=== PATIENT | female | born 1980 | race Caucasian/White ===

== ENCOUNTER 2020-12-27 21:48 | Emergency (ER) | payer MEDICAID ==
[~2020-12-27] VITALS: Ht 157.5 cm; Wt 95.5 kg
[2020-12-27] MEDS ORDERED: LORazepam 1 MG tablet PO ONE (22:15)
[2020-12-27] MEDS ORDERED: cloNIDine 0.1 mg tablet PO ONE (22:15)
[2020-12-27] MEDS ORDERED: OLANZapine 5mg rapidly disint. tablet PO ONE (22:15)
[2020-12-27 22:55] LABS: BASOPHILS # (AUTO) 0.1 X10'3 (0-0.2); BASOPHILS % (AUTO) 0.6 % (0-1); EOSINOPHILS # (AUTO) 0.1 X10'3 (0-0.9); EOSINOPHILS % (AUTO) 0.9 % (0-6); HEMATOCRIT 30.3 % (35.0-45.0); HEMOGLOBIN 9.2 g/dl (12.0-16.0); LYMPHOCYTES # (AUTO) 2.1 X10'3 (1.1-4.8); LYMPHOCYTES % (AUTO) 18.7 % (21-51); MEAN CORPUSCULAR HEMOGLOBIN 19.9 PG (27.0-31.0); MEAN CORPUSCULAR HGB CONC 30.5 g/dL (33.0-36.5); MEAN CORPUSCULAR VOLUME 65.3 FL (78-98); MEAN PLATELET VOLUME 8.7 FL (7.4-10.4); MONOCYTES # (AUTO) 0.8 X10'3 (0-0.9); MONOCYTES % (AUTO) 7.5 % (2-12); NEUTROPHILS % (AUTO) 72.3 % (42-75); PLATELET COUNT 439 X10'3 (140-440); RED BLOOD COUNT 4.63 X10'6 (4.20-5.60); RED CELL DISTRIBUTION WIDTH 17.8 % (11.5-14.5); WHITE BLOOD COUNT 11.2 X10'3 (4.5-11.0)
--- NOTE | 2020-12-27 23:00 | NUR ---
pt tolerating po fluids . encourage her to bedside commode for urine sample . pt up out of bed to commode unable to void notified deon sanchez . will continue to encourage po in take
[2020-12-27 23:07] LABS: ALANINE AMINOTRANSFERASE 37 U/L (12-78); ALBUMIN 3.6 G/DL (3.4-5.0); ALBUMIN/GLOBULIN RATIO 0.9 (1.1-1.5); ALKALINE PHOSPHATASE 87 IU/L (46-116); ANION GAP 17 (8-16); ASPARTATE AMINO TRANSFERASE 49 U/L (10-37); BILIRUBIN,TOTAL 0.5 MG/DL (0.1-1.0); BLOOD UREA NITROGEN 14 MG/DL (7-18); BUN/CREATININE RATIO 15.4 (6.6-38.0); CALCIUM 9.2 MG/DL (8.5-10.1); CHLORIDE 102 MMOL/L (99-107); CREATININE 0.91 MG/DL (0.40-0.90); GLUCOSE 121 MG/DL (70-104); SODIUM 139 MMOL/L (135-145); TOTAL CARBON DIOXIDE 20.4 MMOL/L (24-32); TOTAL PROTEIN 7.5 G/DL (6.4-8.2); eGFR 69 ML/MIN
[2020-12-27] MEDS ORDERED: POTA20TA19 PO (23:28)
[2020-12-27] MEDS ORDERED: PROP10TA10 PO (23:28)
[2020-12-28] MEDS ORDERED: OLANZapine 5mg rapidly disint. tablet PO ONE (00:10)
[2020-12-28 00:55] LABS: URINE AMPHETAMINE SCREEN POSITIVE (Neg); URINE BARBITUATE SCREEN NEGATIVE (Neg); URINE BENZODIAZEPINES SCREEN NEGATIVE (Neg); URINE CANNABINOID SCREEN POSITIVE (Neg); URINE COCAINE SCREEN NEGATIVE (Neg); URINE METHADONE SCREEN NEGATIVE (Neg); URINE OPIATE SCREEN POSITIVE (Neg); URINE PHENCYCLIDINE SCREEN NEGATIVE (Neg)
[2020-12-28 00:58] LABS: CLARITY,URINE SLIGHTLY CLOUDY (Clear); COLOR,URINE YELLOW (Yellow); GLUCOSE, URINE NEGATIVE (Neg); KETONES,URINE NEGATIVE (Neg); LEUKOCYTE ESTERASE ,URINE NEGATIVE (Neg); NITRITES, URINE NEGATIVE (Neg); OCCULT BLOOD,URINE NEGATIVE (Neg); PROTEIN,URINE NEGATIVE (Neg); UROBILINOGEN,URINE 0.2 E.U/dL (0.2-1.0)
[2020-12-28 01:05] LABS: UA COLLECTION TYPE STRAIGHT CATH
[2020-12-28 01:06] LABS: BACTERIA,URINE NONE SEEN /HPF (Neg); MUCUS STRANDS MANY /LPF (Neg); RBC,URINE NONE SEEN /HPF (0-2); SQUAMOUS EPITHELIAL CELL,UR FEW /LPF (FEW); WBC,URINE 0-4 /HPF (0-4)
[2020-12-28 01:10] VITALS: BP 179/86
[2020-12-28 03:23] LABS: ANISOCYTOSIS 1+; MICROCYTOSIS 2+; PLATELET ESTIMATE NORMAL
[2020-12-28 03:24] LABS: ELLIPTOCYTES 1+; HYPOCHROMASIA 2+; SPHEROCYTES FEW
== END 2020-12-28 01:15 | disposition home or self-care (01) ==
LOC: ER 21:49
DX: R07.9 Chest pain, unspecified (principal); E87.6 Hypokalemia; E05.91 Thyrotoxicosis, unspecified with thyrotoxic crisis or storm; G43.909 Migraine, unspecified, not intractable, without status migrainosus; J45.909 Unspecified asthma, uncomplicated; F41.9 Anxiety disorder, unspecified; F17.210 Nicotine dependence, cigarettes, uncomplicated; F15.90 Other stimulant use, unspecified, uncomplicated; Z86.69 Personal history of other diseases of the nervous system and sense organs; Z86.19 Personal history of other infectious and parasitic diseases; Z72.89 Other problems related to lifestyle; Z56.0 Unemployment, unspecified; Z59.0 Homelessness; Z88.8 Allergy status to other drugs, medicaments and biological substances; Z88.0 Allergy status to penicillin
CPT/HCPCS: 36415; 80053; 80305; 81001; 84443; 85008; 85025; 99284

== ENCOUNTER 2022-01-07 22:37 | Emergency (ER) | payer MEDICAID ==
[~2022-01-07] VITALS: Ht 160 cm; Wt 79.5 kg
[2022-01-08] MEDS ORDERED: normal saline 1000ml 1,000 ML IV ONE (00:05)
[2022-01-08] MEDS ORDERED: iohexol 350MG/ML 100ml bottle IV ONE (00:15)
[2022-01-08 00:20] LABS: URINE HCG NEGATIVE (NEG)
[2022-01-08 00:23] LABS: CLARITY,URINE CLEAR (Clear); COLOR,URINE YELLOW (Yellow); GLUCOSE, URINE NEGATIVE (Neg); KETONES,URINE NEGATIVE (Neg); LEUKOCYTE ESTERASE ,URINE NEGATIVE (Neg); NITRITES, URINE NEGATIVE (Neg); OCCULT BLOOD,URINE NEGATIVE (Neg); PROTEIN,URINE NEGATIVE (Neg); UROBILINOGEN,URINE 0.2 E.U/dL (0.2-1.0)
[2022-01-08 00:30] LABS: UA COLLECTION TYPE CLN CATCH MIDSTREAM
--- NOTE | 2022-01-08 00:50 | NUR ---
Multiple attempts made to recieve lab draw from system technologist, iv access from primary nurse, weigher and charger, and float RN, with no success. Will consult [facility] for IV access due to unsuccessful attempts.
[2022-01-08] MEDS ORDERED: vancomycin/NS 1 GM ADD-VANTAGE 250 ML X 1 DOSE IV ONE (01:11)
[2022-01-08] MEDS ORDERED: ondansetron/PF 4mg/2ml inj IV ONE ×2 (02:25→05:15)
[2022-01-08] MEDS ORDERED: fentaNYL/PF 50MCG/1 ML 2ML syringe IV ONE (02:25)
[2022-01-08 02:39] LABS: BASOPHILS # (AUTO) 0.1 X10'3 (0-0.2); BASOPHILS % (AUTO) 0.5 % (0-1); EOSINOPHILS # (AUTO) 0.2 X10'3 (0-0.9); EOSINOPHILS % (AUTO) 1.7 % (0-6); HEMATOCRIT 25.1 % (35.0-45.0); HEMOGLOBIN 7.8 g/dl (12.0-16.0); LYMPHOCYTES # (AUTO) 1.6 X10'3 (1.1-4.8); LYMPHOCYTES % (AUTO) 14.9 % (21-51); MEAN CORPUSCULAR HEMOGLOBIN 19.4 PG (27.0-31.0); MEAN CORPUSCULAR HGB CONC 31.1 g/dL (33.0-36.5); MEAN CORPUSCULAR VOLUME 62.6 FL (78-98); MEAN PLATELET VOLUME 8.5 FL (7.4-10.4); MONOCYTES # (AUTO) 0.8 X10'3 (0-0.9); MONOCYTES % (AUTO) 6.9 % (2-12); NEUTROPHILS # (AUTO) 8.4 X10'3 (1.8-7.7); PLATELET COUNT 547 X10'3 (140-440); RED BLOOD COUNT 4.02 X10'6 (4.20-5.60); RED CELL DISTRIBUTION WIDTH 18.6 % (11.5-14.5); WHITE BLOOD COUNT 11.1 X10'3 (4.5-11.0)
[2022-01-08 03:01] LABS: ALANINE AMINOTRANSFERASE 12 U/L (12-78); ALBUMIN 2.4 G/DL (3.4-5.0); ALBUMIN/GLOBULIN RATIO 0.5 (1.1-1.5); ALKALINE PHOSPHATASE 78 IU/L (46-116); ANION GAP 8 (8-16); ASPARTATE AMINO TRANSFERASE 11 U/L (10-37); BILIRUBIN,TOTAL 0.1 MG/DL (0.1-1.0); BLOOD UREA NITROGEN 9 MG/DL (7-18); BUN/CREATININE RATIO 13.4 (6.6-38.0); CALCIUM 8.3 MG/DL (8.5-10.1); CHLORIDE 102 MMOL/L (99-107); CREATININE 0.67 MG/DL (0.40-0.90); GLUCOSE 92 MG/DL (70-104); POTASSIUM 4.1 MMOL/L (3.5-5.1); SODIUM 138 MMOL/L (135-145); TOTAL CARBON DIOXIDE 28.2 MMOL/L (24-32); TOTAL PROTEIN 6.9 G/DL (6.4-8.2); eGFR > 90 ML/MIN
[2022-01-08] MEDS ORDERED: ketamine 50 mg/ml 10ml vial IV ONE ×2 (03:40→05:15)
[2022-01-08] MEDS ORDERED: ketorolac trometh. 30mg/ml inj. IV ONE (03:40)
[2022-01-08] MEDS ORDERED: sulfamethoxazole/trimethoprim DS (800/160mg) tablet PO ONE (05:15)
[2022-01-08] MEDS ORDERED: SULF1TAB49 PO (05:16)
[2022-01-08 05:28] LABS: ANISOCYTOSIS 2+; HYPOCHROMASIA 2+; MICROCYTOSIS 2+; PLATELET ESTIMATE INCREASED; POLYCHROMASIA FEW; STOMATOCYTES FEW
[2022-01-08 05:29] LABS: ELLIPTOCYTES 1+
--- NOTE | 2022-01-08 06:20 | NUR ---
patient awake in the room at this time.
[2022-01-08 07:24] VITALS: BP 119/73
[2022-01-08] MEDS ORDERED: VANCOmycin 1250MG/NS 250ml Bag 250 ML IV SCH (14:00)
--- NOTE | 2022-01-11 05:26 | NUR ---
VOICEMAIL MESSAGE LEFT FOR THE PT TO RETURN TO THE ER FOR TREATMENT FOR POSITIVE BLOOD CULTURE
== END 2022-01-08 07:27 | disposition home or self-care (01) ==
LOC: ER 22:38
DX: L02.414 Cutaneous abscess of left upper limb (principal); L02.31 Cutaneous abscess of buttock; J45.909 Unspecified asthma, uncomplicated; G43.909 Migraine, unspecified, not intractable, without status migrainosus; F15.10 Other stimulant abuse, uncomplicated; Z59.00 Homelessness unspecified; Z56.0 Unemployment, unspecified; Z88.5 Allergy status to narcotic agent; Z88.1 Allergy status to other antibiotic agents; Z88.0 Allergy status to penicillin; Z79.899 Other long term (current) drug therapy
CPT/HCPCS: 10061; 36415; 36556; 71275; 73201; 80053; 81003; 81025; 83605; 84145; 85008; 85025; 87040; 87077; 87186; 96365; 96366; 96375; 96376; 99152; 99153; 99285; J1885; J2405; J3010; J3370; J3490; J7030; Q9967; 32554

== ENCOUNTER 2022-01-11 08:22 | Inpatient (IN) | payer MEDICAID ==
[~2022-01-11] VITALS: Ht 160 cm; Wt 93.3 kg
[~2022-01-11 08:22] MED LIST: SULF1TAB49 PO
[2022-01-11] MEDS ORDERED: normal saline 1000ML IV soln IV ONE (09:25)
[2022-01-11] MEDS ORDERED: vancomycin/NS 1 GM ADD-VANTAGE 250 ML IV ONE (09:25)
[2022-01-11 11:07] LABS: URINE AMPHETAMINE SCREEN NEGATIVE (Neg); URINE BARBITUATE SCREEN NEGATIVE (Neg); URINE BENZODIAZEPINES SCREEN NEGATIVE (Neg); URINE CANNABINOID SCREEN POSITIVE (Neg); URINE COCAINE SCREEN NEGATIVE (Neg); URINE METHADONE SCREEN POSITIVE (Neg); URINE OPIATE SCREEN POSITIVE (Neg); URINE PHENCYCLIDINE SCREEN NEGATIVE (Neg)
[2022-01-11] MEDS ORDERED: aztreonam inj. 1,000 MG in normal saline 100ml IV soln 100 ML IV ONE (11:15)
[2022-01-11 11:17] LABS: CLARITY,URINE CLOUDY (Clear); COLOR,URINE YELLOW (Yellow); GLUCOSE, URINE NEGATIVE (Neg); KETONES,URINE NEGATIVE (Neg); LEUKOCYTE ESTERASE ,URINE NEGATIVE (Neg); NITRITES, URINE NEGATIVE (Neg); OCCULT BLOOD,URINE NEGATIVE (Neg); PH,URINE 7.5 (4.8-8.0); PROTEIN,URINE NEGATIVE (Neg); UROBILINOGEN,URINE 0.2 E.U/dL (0.2-1.0)
[2022-01-11 11:26] LABS: UA COLLECTION TYPE NON-SPECIFIED
[2022-01-11 11:28] LABS: BACTERIA,URINE FEW /HPF (Neg); RBC,URINE 0-2 /HPF (0-2); SQUAMOUS EPITHELIAL CELL,UR FEW /LPF (FEW); WBC,URINE 0-4 /HPF (0-4)
[2022-01-11 11:30] LABS: AMORPHOUS PHOSPHATES 2+
[2022-01-11] MEDS ORDERED: acetaminophen 325mg tablet PO PRN (11:50)
[2022-01-11] MEDS ORDERED: potassium Cl 20 mEq SR tablet PO PRN ×2 (11:50)
[2022-01-11] MEDS ORDERED: ondansetron/PF 4mg/2ml inj IV PRN (11:50)
[2022-01-11] MEDS ORDERED: magnesium 2GM in 50ml NS 50 ML IV PRN (11:50)
[2022-01-11] MEDS ORDERED: potassium CL 10mEq/100ml bag 100 ML IV PRN (11:50)
[2022-01-11] MEDS ORDERED: magnesium Cl slow-release 64mg tablet PO PRN (11:50)
[2022-01-11] MEDS ORDERED: magnesium 4gm in 100ml NS 100 ML IV PRN (11:50)
[2022-01-11] MEDS ORDERED: SULF1TAB45 PO (12:20)
[2022-01-11] MEDS ORDERED: ESCI-8 PO (12:20)
[2022-01-11] MEDS ORDERED: ALBU8.5H17 IH (12:20)
[2022-01-11] MEDS ORDERED: GABA800T11 PO (12:20)
[2022-01-11] MEDS ORDERED: LEVO125T8 PO (12:20)
[2022-01-11] MEDS ORDERED: METH-603 PO (12:20)
[2022-01-11] MEDS ORDERED: LEVE750T PO (12:20)
[2022-01-11 12:25] LABS: MAGNESIUM 2.1 MG/DL (1.5-2.4); POTASSIUM 4.4 MMOL/L (3.5-5.1)
[2022-01-11] MEDS: normal saline 1000ml 1,000 ML IV SCH ×2 (13:17→21:50)
[2022-01-11] MEDS: levoFLOXACIN-Levaquin 500mg/D5 100 ML IV SCH (17:39)
[2022-01-11] MEDS: K and/or MAG REPLACEMENT MC SCH (20:00)
--- NOTE | 2022-01-11 21:12 | NUR ---
PT IN BED RESTING ON BACK. RESP EVN AND UNLABORED. SKIN W/D/I. VOICES NO COMPLAINTS AT PRESENT.
[2022-01-12 03:25] LABS: ALBUMIN 2.5 G/DL (3.4-5.0); ANION GAP 7 (8-16); BASOPHILS % (AUTO) 0.7 % (0-1); BLOOD UREA NITROGEN 13 MG/DL (7-18); CALCIUM 8.2 MG/DL (8.5-10.1); CHLORIDE 102 MMOL/L (99-107); CREATININE 0.93 MG/DL (0.40-0.90); EOSINOPHILS # (AUTO) 0.3 X10'3 (0-0.9); EOSINOPHILS % (AUTO) 5.2 % (0-6); GLUCOSE 83 MG/DL (70-104); LYMPHOCYTES # (AUTO) 1.7 X10'3 (1.1-4.8); LYMPHOCYTES % (AUTO) 29.4 % (21-51); MAGNESIUM 2.2 MG/DL (1.5-2.4); MEAN CORPUSCULAR HEMOGLOBIN 19.8 PG (27.0-31.0); MEAN CORPUSCULAR HGB CONC 30.7 g/dL (33.0-36.5); MEAN CORPUSCULAR VOLUME 64.4 FL (78-98); MEAN PLATELET VOLUME 7.9 FL (7.4-10.4); MONOCYTES # (AUTO) 0.5 X10'3 (0-0.9); MONOCYTES % (AUTO) 8.9 % (2-12); NEUTROPHILS # (AUTO) 3.2 X10'3 (1.8-7.7); NEUTROPHILS % (AUTO) 55.8 % (42-75); PLATELET COUNT 634 X10'3 (140-440); POTASSIUM 4.6 MMOL/L (3.5-5.1); RED BLOOD COUNT 4.03 X10'6 (4.20-5.60); RED CELL DISTRIBUTION WIDTH 19.3 % (11.5-14.5); SODIUM 134 MMOL/L (135-145); TOTAL CARBON DIOXIDE 24.6 MMOL/L (24-32); WHITE BLOOD COUNT 5.8 X10'3 (4.5-11.0); eGFR 67 ML/MIN
[2022-01-12 06:48] LABS: ANISOCYTOSIS 2+; BURR CELLS 1+; ELLIPTOCYTES 1+; HYPOCHROMASIA 2+; MICROCYTOSIS 2+; PLATELET ESTIMATE INCREASED; POLYCHROMASIA FEW; ROULEAUX 1+
[2022-01-12] MEDS: normal saline 1000ml 1,000 ML IV SCH ×2 (07:18→17:34)
[2022-01-12] MEDS: levoFLOXACIN-Levaquin 500mg/D5 100 ML IV SCH (07:19)
[2022-01-12] MEDS: K and/or MAG REPLACEMENT MC SCH ×2 (07:19→20:00)
[2022-01-12] MEDS ORDERED: albuterol 2.5 MG/3 ML nebule NEB PRN (08:05)
[2022-01-12] MEDS: gabapentin 400mg capsule PO SCH ×3 (09:42→21:06)
[2022-01-12] MEDS: levoTHYROXINE 125mcg tablet PO SCH (09:42)
[2022-01-12] MEDS: levetiracetam 250mg tablet PO SCH ×2 (09:42→21:06)
[2022-01-12] MEDS: ESCITALOPRAM OXALATE 5 MG TABLET PO SCH (09:42)
[2022-01-12] MEDS: methadone 10mg tablet PO SCH (11:07)
[2022-01-12 15:00] VITALS: BP 95/50
--- NOTE | 2022-01-12 15:02 | NUR ---
Patient in room PCU 3013. I have received report from ER and had the opportunity to ask questions and assume patient care.
[2022-01-12 18:00] VITALS: BP 119/62
--- NOTE | 2022-01-12 18:37 | NUR ---
Problems reprioritized. Patient report given, questions answered & plan of care reviewed with Claudia.
--- NOTE | 2022-01-12 18:39 | NUR ---
Patient in room PCU 3013. I have received report from Moshe CIFUENTES and had the opportunity to ask questions and assume patient care.
[2022-01-12] MEDS ORDERED: VANCOmycin 2,000MG in NS 500ml IV soln IV ONE (20:00)
[2022-01-12 22:00] VITALS: BP 119/58
[2022-01-13 02:00] VITALS: BP 137/57
[2022-01-13] MEDS: normal saline 1000ml 1,000 ML IV SCH ×3 (05:21→20:18)
--- NOTE | 2022-01-13 06:11 | NUR ---
Problems reprioritized. Patient report given, questions answered & plan of care reviewed with Moshe CIFUENTES.
--- NOTE | 2022-01-13 06:30 | NUR ---
Patient in room PCU 3013. I have received report from Claudia and had the opportunity to ask questions and assume patient care.
[2022-01-13] MEDS: levoFLOXACIN-Levaquin 500mg/D5 100 ML IV SCH (07:18)
[2022-01-13] MEDS: ESCITALOPRAM OXALATE 5 MG TABLET PO SCH (07:19)
[2022-01-13] MEDS: levetiracetam 250mg tablet PO SCH ×2 (07:20→20:18)
[2022-01-13] MEDS: gabapentin 400mg capsule PO SCH ×3 (07:20→20:18)
[2022-01-13] MEDS: methadone 10mg tablet PO SCH (07:20)
[2022-01-13] MEDS: levoTHYROXINE 125mcg tablet PO SCH (07:20)
[2022-01-13] MEDS: K and/or MAG REPLACEMENT MC SCH ×2 (08:00→20:00)
[2022-01-13 08:38] LABS: BASOPHILS % (AUTO) 0.8 % (0-1); EOSINOPHILS # (AUTO) 0.2 X10'3 (0-0.9); EOSINOPHILS % (AUTO) 4.3 % (0-6); HEMATOCRIT 26.1 % (35.0-45.0); HEMOGLOBIN 8.1 g/dl (12.0-16.0); LYMPHOCYTES % (AUTO) 35.2 % (21-51); MEAN CORPUSCULAR HEMOGLOBIN 19.4 PG (27.0-31.0); MEAN CORPUSCULAR HGB CONC 30.8 g/dL (33.0-36.5); MEAN PLATELET VOLUME 8.3 FL (7.4-10.4); MONOCYTES # (AUTO) 0.6 X10'3 (0-0.9); MONOCYTES % (AUTO) 10.1 % (2-12); NEUTROPHILS # (AUTO) 2.9 X10'3 (1.8-7.7); NEUTROPHILS % (AUTO) 49.6 % (42-75); PLATELET COUNT 512 X10'3 (140-440); RED BLOOD COUNT 4.15 X10'6 (4.20-5.60); RED CELL DISTRIBUTION WIDTH 19.3 % (11.5-14.5); WHITE BLOOD COUNT 5.7 X10'3 (4.5-11.0)
[2022-01-13 08:48] LABS: ALBUMIN 2.5 G/DL (3.4-5.0); ANION GAP 5 (8-16); BLOOD UREA NITROGEN 13 MG/DL (7-18); BUN/CREATININE RATIO 14.4 (6.6-38.0); CALCIUM 8.2 MG/DL (8.5-10.1); CHLORIDE 108 MMOL/L (99-107); GLUCOSE 78 MG/DL (70-104); MAGNESIUM 2.1 MG/DL (1.5-2.4); SODIUM 141 MMOL/L (135-145); TOTAL CARBON DIOXIDE 27.7 MMOL/L (24-32); eGFR 69 ML/MIN
[2022-01-13] MEDS: vancomycin/NS 1 GM ADD-VANTAGE 250 ML IV SCH ×2 (09:59→20:44)
[2022-01-13 10:17] LABS: ANISOCYTOSIS 2+; HYPOCHROMASIA 1+; MICROCYTOSIS 2+; PLATELET ESTIMATE INCREASED
[2022-01-13 10:18] LABS: POIKILOCYTOSIS FEW
[2022-01-13 11:00] VITALS: BP 100/52
[2022-01-13] MEDS ORDERED: ondansetron 4mg rapidly disintigrating tab PO PRN (11:25)
--- NOTE | 2022-01-13 13:30 | NUR ---
Pt's dressing and packing changed. Pt called her mother during the procedure, and both were screaming during the dressing change. Pt feels mild discomfort from her wound an hour after the dressing change.
[2022-01-13 18:00] VITALS: BP 113/49
--- NOTE | 2022-01-13 18:30 | NUR ---
Problems reprioritized. Patient report given, questions answered & plan of care reviewed with Claudia.
--- NOTE | 2022-01-13 19:05 | NUR ---
Patient in room PCU 3013. I have received report from Moshe CIFUENTES and had the opportunity to ask questions and assume patient care.
[2022-01-13 22:00] VITALS: BP 104/43
[2022-01-14 02:00] VITALS: BP 146/60
[2022-01-14 06:00] VITALS: BP 97/49
--- NOTE | 2022-01-14 06:47 | NUR ---
Problems reprioritized. Patient report given, questions answered & plan of care reviewed with Stacy CIFUENTES.
[2022-01-14] MEDS: methadone 10mg tablet PO SCH (07:30)
[2022-01-14] MEDS ORDERED: VANCOMYCIN LEVEL IV ONE (07:30)
[2022-01-14] MEDS: levoTHYROXINE 125mcg tablet PO SCH (07:31)
[2022-01-14] MEDS: levetiracetam 250mg tablet PO SCH (07:31)
--- NOTE | 2022-01-14 07:39 | NUR ---
Patient in room PCU 3013. I have received report from Claudia CIFUENTES and had the opportunity to ask questions and assume patient care.
[2022-01-14] MEDS: vancomycin/NS 1 GM ADD-VANTAGE 250 ML IV SCH (08:00)
[2022-01-14] MEDS: K and/or MAG REPLACEMENT MC SCH (08:08)
[2022-01-14] MEDS: ESCITALOPRAM OXALATE 5 MG TABLET PO SCH (08:12)
[2022-01-14 08:44] LABS: BASOPHILS % (AUTO) 0.9 % (0-1); EOSINOPHILS # (AUTO) 0.3 X10'3 (0-0.9); EOSINOPHILS % (AUTO) 5.2 % (0-6); HEMATOCRIT 24.4 % (35.0-45.0); HEMOGLOBIN 7.4 g/dl (12.0-16.0); LYMPHOCYTES # (AUTO) 1.8 X10'3 (1.1-4.8); LYMPHOCYTES % (AUTO) 37.1 % (21-51); MEAN CORPUSCULAR HEMOGLOBIN 18.9 PG (27.0-31.0); MEAN CORPUSCULAR HGB CONC 30.3 g/dL (33.0-36.5); MEAN CORPUSCULAR VOLUME 62.5 FL (78-98); MEAN PLATELET VOLUME 8.4 FL (7.4-10.4); MONOCYTES # (AUTO) 0.4 X10'3 (0-0.9); NEUTROPHILS # (AUTO) 2.4 X10'3 (1.8-7.7); NEUTROPHILS % (AUTO) 48.8 % (42-75); PLATELET COUNT 452 X10'3 (140-440); RED BLOOD COUNT 3.91 X10'6 (4.20-5.60); RED CELL DISTRIBUTION WIDTH 19.4 % (11.5-14.5); WHITE BLOOD COUNT 4.9 X10'3 (4.5-11.0)
[2022-01-14] MEDS: gabapentin 400mg capsule PO SCH ×2 (08:59→12:07)
--- NOTE | 2022-01-14 09:05 | NUR ---
Allevyn Life dressing is replaced. Packing is intact. Tenderness to the touch is minimal during dressing change.
[2022-01-14 09:08] LABS: ALBUMIN 2.4 G/DL (3.4-5.0); ANION GAP 7 (8-16); BLOOD UREA NITROGEN 13 MG/DL (7-18); BUN/CREATININE RATIO 14.4 (6.6-38.0); CALCIUM 7.9 MG/DL (8.5-10.1); CHLORIDE 109 MMOL/L (99-107); GLUCOSE 86 MG/DL (70-104); MAGNESIUM 1.7 MG/DL (1.5-2.4); POTASSIUM 4.2 MMOL/L (3.5-5.1); SODIUM 144 MMOL/L (135-145); eGFR 69 ML/MIN
[2022-01-14] MEDS ORDERED: vancomycin inj 500 MG in normal saline 100ml IV soln 100 ML IV SCH (10:00)
[2022-01-14] MEDS: normal saline 1000ml 1,000 ML IV SCH (10:04)
[2022-01-14 10:13] LABS: ANISOCYTOSIS 2+; ELLIPTOCYTES FEW; HYPOCHROMASIA 1+; MICROCYTOSIS 2+; PLATELET ESTIMATE INCREASED; POLYCHROMASIA FEW; TEAR DROP CELLS FEW
[2022-01-14 10:14] LABS: STOMATOCYTES FEW
[2022-01-14] MEDS ORDERED: LEVO500T90 PO (10:32)
[2022-01-14 11:00] VITALS: BP 125/77
[2022-01-14] MEDS ORDERED: levoFLOXACIN 500mg tablet PO SCH (11:00)
--- NOTE | 2022-01-14 13:18 | NUR ---
Discharge: Patient has information on this admission, is instructed to follow up with her primary care provider, methadone clinic, and wound care clinic. IV is removed and Pt. has all of her belongings, and is able to make independent decisions and to plan for her own future care needs. All instructions are also provided in the discharge packet.
[2022-01-15] MEDS ORDERED: VANCOMYCIN LEVEL IV ONE (21:30)
== END 2022-01-14 12:55 | disposition home or self-care (01) | DRG 383 ==
LOC: ER 08:23 → ED HOLD 11:52 → PCU 3S 01-12 14:47
PROVIDERS: ADMIT Internal Medicine; ATTEND Internal Medicine
DX: L02.414 Cutaneous abscess of left upper limb (principal); R78.81 Bacteremia; B18.2 Chronic viral hepatitis C; B96.89 Other specified bacterial agents as the cause of diseases classified elsewhere; E06.3 Autoimmune thyroiditis; L03.90 Cellulitis, unspecified; F32.A Depression, unspecified; G40.909 Epilepsy, unspecified, not intractable, without status epilepticus; J45.909 Unspecified asthma, uncomplicated; F41.9 Anxiety disorder, unspecified; G43.909 Migraine, unspecified, not intractable, without status migrainosus; Z56.0 Unemployment, unspecified; Z87.39 Personal history of other diseases of the musculoskeletal system and connective tissue; Z59.00 Homelessness unspecified; Z88.5 Allergy status to narcotic agent; Z88.0 Allergy status to penicillin; Z88.8 Allergy status to other drugs, medicaments and biological substances; Z79.899 Other long term (current) drug therapy; Z79.890 Hormone replacement therapy
CPT/HCPCS: 36415; 76937; 80048; 80202; 80305; 81001; 83605; 83735; 84132; 84145; 84443; 85008; 85025; 87040; 87081; 94760; 99285; C1751; G0378; J1956; J3370; J3490; J7030; J7040

== ENCOUNTER 2022-01-17 17:32 | Emergency (ER) | payer MEDICAID ==
[~2022-01-17] VITALS: Ht 160 cm; Wt 86.4 kg
[~2022-01-17 17:32] MED LIST changes: +ALBU8.5H17 IH; +ESCI-8 PO; +GABA800T11 PO; +LEVE750T PO; +LEVO125T8 PO; +LEVO500T90 PO; +METH-603 PO; -SULF1TAB49 PO
[2022-01-17 17:45] VITALS: BP 143/64
[2022-01-17] MEDS ORDERED: DOXYCYCLINE 100MG CAPSULE PO STA (18:57)
[2022-01-17] MEDS ORDERED: sulfamethoxazole/trimethoprim DS (800/160mg) tablet PO ONE (19:00)
[2022-01-17] MEDS ORDERED: SULF1TAB49 PO (19:02)
[2022-01-17] MEDS ORDERED: DOXY100C77 PO (19:02)
== END 2022-01-17 19:32 | disposition home or self-care (01) ==
LOC: ER 17:34
DX: B99.9 Unspecified infectious disease (principal); R11.0 Nausea; R42 Dizziness and giddiness; R19.7 Diarrhea, unspecified; G43.909 Migraine, unspecified, not intractable, without status migrainosus; J45.909 Unspecified asthma, uncomplicated; F41.9 Anxiety disorder, unspecified; F15.90 Other stimulant use, unspecified, uncomplicated; Z86.69 Personal history of other diseases of the nervous system and sense organs; Z86.19 Personal history of other infectious and parasitic diseases; Z72.89 Other problems related to lifestyle; Z59.00 Homelessness unspecified; Z56.0 Unemployment, unspecified; Z88.5 Allergy status to narcotic agent; Z88.0 Allergy status to penicillin; Z88.8 Allergy status to other drugs, medicaments and biological substances; Z79.2 Long term (current) use of antibiotics; Z79.899 Other long term (current) drug therapy
CPT/HCPCS: 99283

== ENCOUNTER 2023-02-19 18:29 | Emergency (ER) | payer MEDICAID ==
[~2023-02-19] VITALS: Ht 160 cm; Wt 86.4 kg
[~2023-02-19 18:29] MED LIST changes: +LEVO-65 PO; -LEVO500T90 PO
[2023-02-19 19:00] VITALS: BP 120/71
[2023-02-19] MEDS ORDERED: HYDROcodone/acetaminophen 10/325mg tab PO ONE (20:20)
[2023-02-19] MEDS ORDERED: naproxen 500mg tablet PO ONE (20:20)
[2023-02-19] MEDS ORDERED: NAPR-56 PO (20:55)
[2023-02-19] MEDS ORDERED: HYDR-3965 PO ×2 (20:55→20:59)
== END 2023-02-19 20:59 | disposition home or self-care (01) ==
LOC: ER 18:29
DX: S62.306A Unspecified fracture of fifth metacarpal bone, right hand, initial encounter for closed fracture (principal); G43.909 Migraine, unspecified, not intractable, without status migrainosus; J45.909 Unspecified asthma, uncomplicated; F15.20 Other stimulant dependence, uncomplicated; Z88.1 Allergy status to other antibiotic agents; Z88.0 Allergy status to penicillin; Z88.8 Allergy status to other drugs, medicaments and biological substances; Z59.00 Homelessness unspecified; Z56.0 Unemployment, unspecified; W19.XXXA Unspecified fall, initial encounter; Y93.89 Activity, other specified; Y92.89 Other specified places as the place of occurrence of the external cause; Y99.8 Other external cause status
CPT/HCPCS: 29125; 73090; 73110; 73130; 99284; A6446; A6449

== ENCOUNTER 2023-08-08 06:38 | Emergency (ER) | payer MEDICAID ==
[~2023-08-08] VITALS: Ht 160 cm; Wt 94.1 kg
[2023-08-08 06:47] VITALS: BP 137/89; PULSE 84; TEMP 98; O2SAT 98
[2023-08-08 07:51] LABS: URINE HCG NEGATIVE (NEG)
[2023-08-08 08:11] LABS: BILIRUBIN,URINE NEGATIVE (Neg); CLARITY,URINE CLOUDY (Clear); COLOR,URINE YELLOW (Yellow); GLUCOSE, URINE NEGATIVE (Neg); KETONES,URINE NEGATIVE (Neg); LEUKOCYTE ESTERASE ,URINE NEGATIVE (Neg); NITRITES, URINE NEGATIVE (Neg); OCCULT BLOOD,URINE NEGATIVE (Neg); PROTEIN,URINE NEGATIVE (Neg); UROBILINOGEN,URINE 0.2 E.U/dL (0.2-1.0)
[2023-08-08 08:16] LABS: UA COLLECTION TYPE CLN CATCH MIDSTREAM
[2023-08-08 08:17] LABS: SQUAMOUS EPITHELIAL CELL,UR FEW /LPF (FEW)
[2023-08-08 08:18] LABS: AMORPHOUS PHOSPHATES 4+; TRANSITIONAL EPI CELLS,URINE FEW /HPF; WBC,URINE 0-4 /HPF (0-4)
[2023-08-08 08:19] LABS: BACTERIA,URINE FEW /HPF (Neg); RBC,URINE 0-2 /HPF (0-2)
[2023-08-08 13:47] LABS: BASOPHILS # (AUTO) 0.1 X10'3 (0-0.2); BASOPHILS % (AUTO) 1.1 % (0-1); EOSINOPHILS # (AUTO) 0.2 X10'3 (0-0.9); EOSINOPHILS % (AUTO) 4.3 % (0-6); HEMATOCRIT 31.2 % (35.0-45.0); HEMOGLOBIN 9.6 g/dl (12.0-16.0); LYMPHOCYTES # (AUTO) 1.3 X10'3 (1.1-4.8); LYMPHOCYTES % (AUTO) 24.2 % (21-51); MEAN CORPUSCULAR HEMOGLOBIN 19.6 PG (27.0-31.0); MEAN CORPUSCULAR HGB CONC 30.8 g/dL (33.0-36.5); MEAN CORPUSCULAR VOLUME 63.8 FL (78-98); MEAN PLATELET VOLUME 8.5 FL (7.4-10.4); MONOCYTES # (AUTO) 0.5 X10'3 (0-0.9); MONOCYTES % (AUTO) 9.7 % (2-12); NEUTROPHILS # (AUTO) 3.2 X10'3 (1.8-7.7); NEUTROPHILS % (AUTO) 60.7 % (42-75); PLATELET COUNT 321 X10'3 (140-440); RED BLOOD COUNT 4.89 X10'6 (4.20-5.60); RED CELL DISTRIBUTION WIDTH 18.3 % (11.5-14.5); WHITE BLOOD COUNT 5.3 X10'3 (4.5-11.0)
[2023-08-08 14:02] LABS: ANISOCYTOSIS 2+; MICROCYTOSIS 2+; PLATELET ESTIMATE NORMAL
[2023-08-08 14:03] LABS: ELLIPTOCYTES FEW; HYPOCHROMASIA 1+
[2023-08-08 14:29] LABS: ALANINE AMINOTRANSFERASE 25 U/L (12-78); ALBUMIN 3.4 G/DL (3.4-5.0); ALBUMIN/GLOBULIN RATIO 0.9 (1.1-1.5); ALKALINE PHOSPHATASE 91 IU/L (46-116); ANION GAP 6 (8-16); ASPARTATE AMINO TRANSFERASE 27 U/L (10-37); BILIRUBIN,TOTAL 0.3 MG/DL (0.1-1.0); BLOOD UREA NITROGEN 12 MG/DL (7-18); BUN/CREATININE RATIO 16.4 (10.0-20.0); CALCIUM 8.9 MG/DL (8.5-10.1); CHLORIDE 102 MMOL/L (99-107); CREATININE 0.73 MG/DL (0.40-0.90); GLUCOSE 89 MG/DL (70-104); POTASSIUM 4.3 MMOL/L (3.5-5.1); SODIUM 137 MMOL/L (135-145); TOTAL CARBON DIOXIDE 29.5 MMOL/L (24-32); TOTAL PROTEIN 7.3 G/DL (6.4-8.2); eCRCL 84 ML/MIN; eGFR 88 ML/MIN
[2023-08-08 14:31] LABS: MAGNESIUM 1.9 MG/DL (1.5-2.4); THYROID STIMULATING HORMONE 2.96 ulU/ml (0.34-4.50)
[2023-08-08 18:55] VITALS: RESP 18
== END 2023-08-08 18:57 | disposition left against medical advice (07) ==
LOC: ER 06:39
DX: R07.89 Other chest pain (principal); G43.909 Migraine, unspecified, not intractable, without status migrainosus; J45.909 Unspecified asthma, uncomplicated; F41.9 Anxiety disorder, unspecified; F17.200 Nicotine dependence, unspecified, uncomplicated; F15.90 Other stimulant use, unspecified, uncomplicated; Z79.899 Other long term (current) drug therapy; Z59.00 Homelessness unspecified; Z56.0 Unemployment, unspecified; Z72.89 Other problems related to lifestyle; Z86.14 Personal history of Methicillin resistant Staphylococcus aureus infection; Z88.5 Allergy status to narcotic agent; Z88.0 Allergy status to penicillin
CPT/HCPCS: 36415; 71045; 80053; 81001; 81025; 83605; 83735; 83880; 84443; 84484; 85008; 85025; 93005; 99285

== ENCOUNTER 2024-06-03 02:27 | Emergency (ER) | payer MEDICAID ==
[~2024-06-03] VITALS: Ht 152.4 cm; Wt 90.9 kg
[2024-06-03] MEDS: LIDOcaine 2% Viscous 15ml cup TP ONE (02:37)
[2024-06-03] MEDS: proparacaine 0.5% ophthalmic drops 15ml EACHEYE ONE (02:37)
--- NOTE | 2024-06-03 03:41 | NUR ---
pt laying on gurney w/ eyes closed. rr even & unlabored, nad observed. ermd aware.
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
--- NOTE | 2024-06-03 04:09 | NUR ---
rpannette called back & said they will come to er to attempt to talk to pt & give case #
[2024-06-03 05:30] VITALS: BP 100/60; PULSE 67; RESP 16; TEMP 98; O2SAT 98
== END 2024-06-03 05:45 | disposition home or self-care (01) ==
LOC: ER 02:28
DX: T65.891A Toxic effect of other specified substances, accidental (unintentional), initial encounter (principal); G43.909 Migraine, unspecified, not intractable, without status migrainosus; J45.909 Unspecified asthma, uncomplicated; F41.9 Anxiety disorder, unspecified; F15.90 Other stimulant use, unspecified, uncomplicated; Z72.89 Other problems related to lifestyle; Z59.00 Homelessness unspecified; Z56.0 Unemployment, unspecified; Z88.8 Allergy status to other drugs, medicaments and biological substances; Z88.0 Allergy status to penicillin; Z79.899 Other long term (current) drug therapy; Z79.2 Long term (current) use of antibiotics; Y92.89 Other specified places as the place of occurrence of the external cause
CPT/HCPCS: 99283

== ENCOUNTER 2024-10-11 02:08 | Emergency (ER) | payer MEDICAID ==
[~2024-10-11] VITALS: Ht 160 cm; Wt 92.3 kg
[~2024-10-11 02:08] MED LIST changes: +GABA-1555 PO; -GABA800T11 PO
[2024-10-11 02:10] VITALS: BP 130/67; TEMP 98.6
[2024-10-11] MEDS: albuterol 2.5 MG/3 ML nebule NEB ONE (03:35)
[2024-10-11 03:39] VITALS: PULSE 79; RESP 26; O2SAT 9
[2024-10-11 03:45] VITALS: PULSE 75; RESP 6; O2SAT 94
[2024-10-11] MEDS ORDERED: GUAI120L55 PO (04:47)
[2024-10-11] MEDS ORDERED: ALBU8HFA INH (04:47)
[2024-10-11] MEDS: acetaminophen 325mg tablet PO ONE (05:01)
== END 2024-10-11 05:04 | disposition home or self-care (01) ==
LOC: ER 02:08
DX: J10.1 Influenza due to other identified influenza virus with other respiratory manifestations (principal); J45.909 Unspecified asthma, uncomplicated; F15.20 Other stimulant dependence, uncomplicated; G43.909 Migraine, unspecified, not intractable, without status migrainosus; F17.200 Nicotine dependence, unspecified, uncomplicated; F41.9 Anxiety disorder, unspecified; Z20.822 Contact with and (suspected) exposure to COVID-19; Z88.1 Allergy status to other antibiotic agents; Z88.5 Allergy status to narcotic agent; Z88.8 Allergy status to other drugs, medicaments and biological substances
CPT/HCPCS: 36415; 87502; 87503; 87811; 94640; 94760; 99283

== ENCOUNTER 2024-11-29 20:15 | Emergency (ER) | payer MEDICAID ==
[~2024-11-29] VITALS: Ht 162.6 cm; Wt 79.4 kg
[~2024-11-29 20:15] MED LIST changes: +GUAI120L55 PO
[2024-11-29 20:16] VITALS: BP 112/39; PULSE 85; RESP 15; TEMP 98.6; O2SAT 98
[2024-11-29] MEDS: ketorolac trometh 30MG/ML vial 30 MG/ML VIAL IM ONE (21:48)
[2024-11-29] MEDS ORDERED: PRED20TA PO (22:30)
[2024-11-29] MEDS ORDERED: LEVO750T68 PO (22:30)
[2024-11-29 22:40] LABS: URINE HCG NEGATIVE (NEG)
[2024-11-29] MEDS: dexamethasone sod phosphate 10mg/ml inj PO STA (22:53)
[2024-11-29] MEDS: levoFLOXACIN 750MG TABLET PO ONE (22:53)
== END 2024-11-29 23:00 | disposition home or self-care (01) ==
LOC: ER 20:16
DX: J18.9 Pneumonia, unspecified organism (principal); G43.909 Migraine, unspecified, not intractable, without status migrainosus; J45.909 Unspecified asthma, uncomplicated; Z88.1 Allergy status to other antibiotic agents; Z88.5 Allergy status to narcotic agent; Z88.8 Allergy status to other drugs, medicaments and biological substances; F15.90 Other stimulant use, unspecified, uncomplicated
CPT/HCPCS: 71046; 81025; 93005; 96372; 99285; J1100; J1885

== ENCOUNTER 2025-04-01 14:35 | Inpatient (IN) | payer MEDICAID ==
[~2025-04-01] VITALS: Ht 160 cm; Wt 75.5 kg
--- NOTE | 2025-04-01 15:18 | Physician Documentation ---
History of Present Illness ~ Chief Complaint: Hyperglycemia Stated Complaint: DIABETIC COMPLICATIONS Time Seen by MD: 16:07 Primary Medical Doctor: ARIA GOVEA Patient is seen today with complaints of increasing confusion over the last few days and high blood sugar. They state patient was seen by the alaina bettencourt and told to come into the ER due to elevated blood sugar level. Patient complains of headache and increased drowsiness and acute onset of confusion over the last few days. Medication Reconciliation Allergies: Coded Allergies: codeine (Verified Allergy, Mild, HIVES, 04/01/25) morphine (Verified Allergy, Mild, HIVES, 04/01/25) cefazolin (Verified Allergy, Unknown, 04/01/25) lithium (Verified Allergy, Unknown, 04/01/25) penicillin V potassium (Verified Allergy, Unknown, 04/01/25) Discontinued Medications Albuterol Sulfate (Proair Hfa), 2 PUFFS IH Q4H PRN for SOB or wheezing, (Reported) Discontinued Reason: patient no longer taking Escitalopram Oxalate (Escitalopram Oxalate), 1 TAB PO DAILY, (Reported) Discontinued Reason: patient no longer taking Gabapentin (Gabapentin), 1 TAB PO TID, (Reported) Discontinued Reason: patient no longer taking Guaifenesin/Codeine Phosphate (Codeine-Guaifen 10-100 mg/5 ml), 10 ML PO Q6H PRN for cough and congestion Discontinued Reason: patient no longer taking Levetiracetam (Levetiracetam), 1 TAB PO BID, (Reported) Discontinued Reason: patient no longer taking Levofloxacin (Levofloxacin), 500 MG PO Q24H@11 Discontinued Reason: patient no longer taking Levothyroxine Sodium (Levothyroxine Sodium), 1 TAB PO DAILY, (Reported) Discontinued Reason: patient no longer taking Methadone Hcl* (Dolophine*), 70 MG PO DAILY, (Reported) Discontinued Reason: patient no longer taking Past Medical History Past Medical History: Migraine, Seizures, Asthma, Hepatitis C, Thyroid (unspecified), Cellulitis, Anxiety Past Surgical History: no surgical history Patient History: Patient reports no known family medical history. Alcohol Use: Occasionally Drug Use: methamphetamine Lives with: Other Lives In: Homeless Occupation: unemployed Review of Systems Constitutional: Denies: chills, fever, weakness Eyes: Denies: pain, blurred vision ENT: Denies: ear pain, nose pain, throat pain, mouth pain Respiratory: Denies: cough, shortness of breath Cardiovascular: Denies: chest pain, palpitations Gastrointestinal: Denies: abdominal pain, nausea, vomiting Genitourinary: Denies: burning, dysuria Female Genitalia: Denies: vaginal discharge, pelvic pain Neurological: Denies: headache, dizziness Musculoskeletal: Denies: pain, swelling Integumentary: Denies: rash, lesions Allergic/Immunologic: Denies: hives, itching Hematologic/Lymphatic: Denies: no symptoms reported Psychiatric: Denies: depression, anxiety Physical Exam Vital Signs: Temperature: 97.6, Source: Temporal, Heart Rate: 63, Respiratory Rate: 18, BP: 118/64, Pulse Oximetry: 95, Weight: 75.450 Oxygen Flow Rate: 0 Physical Exam General: Awake, no acute distress. HEENT: Conjunctiva pink, Sclera clear, Mucus Membranes moist. Neck: Supple without masses and tenderness. Resp: Unlabored. Lungs clear to auscultation bilaterally. Heart: Regular Rate and rhythm, normal S1 and S2 without murmur, rub or gallop. Abdomen: Soft and non tender no organomegaly Extremities: No cyanosis,clubbing or edema. Skin: Warm and Dry. Progress Results/Orders Results/Orders Orders - JEANIE PAULA PAC Ct Head (04/01/25 15:29) Drug Screen, Urine (04/01/25 18:21) Saline Lock (04/01/25 ) Page Hospitalist (04/01/25 18:21) Fill Out Med Reconciliation (04/01/25 18:21) Completed Orders - JEANIE PAULA PAC Ct Head (04/01/25 15:29) Cbc/Diff (04/01/25 16:35) Normal Saline 1000ml (Sodium Chloride 10 (04/01/25 18:21) Medications Received in ER Medications (Trade) Dose Ordered Sig/Yimi Route PRN Reason Start Time Stop Time Status Last Admin Dose Admin Sodium Chloride 1,000 ml @ 1,000 mls/hr ONCE STAT IV 04/01/25 18:21 04/01/25 19:20 DC 04/01/25 22:14 1,000 MLS/HR Vital Signs 04/01/25 04/01/25 04/01/25 04/01/25 14:37 17:23 17:57 18:32 Temp 97.6 Pulse 63 58 Resp 18 12 16 12 B/P (MAP) 118/64 125/88 (100) Pulse Ox 95 98 O2 Flow Rate 0 0 04/01/25 18:34 Pulse 50 Resp 11 B/P (MAP) 105/70 (82) Pulse Ox 98 O2 Flow Rate 0 Laboratory Tests Test 04/01/25 14:41 04/01/25 15:10 04/01/25 16:57 Glucometer 125 H Sodium Level 137 Potassium Level 3.1 L Chloride Level 101 Carbon Dioxide Level 27.9 Anion Gap 8 Blood Urea Nitrogen 8 Creatinine 0.70 Estimated GFR/1.73 m2 > 90 BUN/Creatinine Ratio 11.4 Glucose Level 105 H Hemoglobin A1c 5.6 Calcium Level 8.4 L Magnesium Level 1.9 Total Bilirubin 0.4 Aspartate Amino Transf (AST/SGOT) 35 Alanine Aminotransferase (ALT/SGPT) 27 Alkaline Phosphatase 74 Total Protein 7.1 Albumin 3.5 Globulin 3.6 Albumin/Globulin Ratio 1.0 L Lipase 24 Chemistry Comments White Blood Count 5.5 Red Blood Count 4.91 Hemoglobin 10.7 L Hematocrit 34.5 L Mean Corpuscular Volume 70.3 L Mean Corpuscular Hemoglobin 21.9 L Mean Corpuscular Hemoglobin Concent 31.1 L Red Cell Distribution Width 17.8 H Platelet Count 226 Mean Platelet Volume 9.8 Neutrophils (%) (Auto) 60.5 Lymphocytes (%) (Auto) 24.1 Monocytes (%) (Auto) 7.6 Eosinophils (%) (Auto) 7.1 H Basophils (%) (Auto) 0.7 Neutrophils # (Auto) 3.3 Lymphocytes # (Auto) 1.3 Monocytes # (Auto) 0.4 Eosinophils # (Auto) 0.4 Basophils # (Auto) 0.0 CBC Comment EKG/XRAY/CT/US/VASC/MRI Bone/Soft Tissue X-Ray (Ext.) : Additional Comment X-ray of right hip interpreted by myself today shows no sign of acute fracture, bones in anatomic alignment, no osteolytic or blastic lesions. DIAGNOSTIC RADIOLOGY Patient: LISANDRA MARTÍNEZ Medical Record: [id number] [facility] 1980, Age: 44 Sex: Female Location: ER Patient Status: REG ER Service Date/Time: 04/01/253 Ordering Physician: ABILIO MAYA MD Exam: HIP UNILATERAL 2 VIEWS EXAM: DI HIP UNILATERAL 2 VIEWS CLINICAL HISTORY: HIP PAIN COMPARISON: None TECHNIQUE: DI HIP UNILATERAL 2 VIEWS Findings/Impression: 2 views of the right hip with frontal view of the pelvis. There is no evidence of an acute fracture, dislocation, blastic, or lytic lesions. No radiopaque foreign bodies. No joint effusion or superficial soft tissue abnormalities. Electronically Signed by:LAURENCE RAMÍREZ DO Date & Time: 04/01/25 1531 Dictated by: LAURENCE RAMÍREZ DO Dictation date and time: 04/01/25 1500 Primary Care Provider: NO PRIMARY CARE PROVIDER cc: ABILIO MAYA MD ~ CT : Impression CAT SCAN Patient: LISANDRA MARTÍNEZ Medical Record: [id number] [facility] 1980, Age: 44 Sex: Female Location: ER Patient Status: REG ER Service Date/Time: 04/01/251528 Ordering Physician: JEANIE PAULA PAC Exam: CT HEAD CT CT HEAD Indication: confusion EXAM DATE: 04/01/2025 03:25 PM COMPARISON: None TECHNIQUE: CT of the head without intravenous contrast. RADIATION DOSE: CTDIvol: 51 mGy, DLP: 880 mGy*cm FINDINGS: There is no intracranial hemorrhage. There is no extra-axial fluid, mass, mass effect or midline shift. The ventricles are midline and normal in size. Basilar cisterns are patent. Polanco-white differentiation is maintained. The paranasal sinuses and mastoids are well-pneumatized. Imaged portion of the orbits are unremarkable. IMPRESSION: No intracranial hemorrhage or mass effect. Electronically Signed by:DEEP MCKEON MD Date & Time: 04/01/25 1636 Dictated by: DEEP MCKEON MD Dictation date and time: 04/01/25 1529 Primary Care Provider: NO PRIMARY CARE PROVIDER cc: JEANIE PAULA PAC ~ Medical Decision Making Findings Patient is seen today with complaints of increasing confusion over the last few days and high blood sugar. They state patient was seen by the [facility] and told to come into the ER due to elevated blood sugar level. Patient complains of headache and increased drowsiness and acute onset of confusion over the last few days. Patient did have CT scan of head that returned unremarkable. Patient does have anemia and hypokalemia on labs. Hospitalist was consulted and patient admitted for further eval and treatment. Departure Disposition: ADMITTED INPATIENT Admission Level of Care: Med/Surg Impression: Primary Impression: Altered mental status Qualified Codes: R40.0 - Somnolence Condition: Stable Additional Instructions: Patient did have CT scan of head that returned unremarkable. Patient does have anemia and hypokalemia on labs. Hospitalist was consulted and patient admitted for further eval and treatment. Referrals: NO PRIMARY CARE PROVIDER (PCP) Signature Scribe Signature: No scribe Attestation: No scribe JEANIE PAULA PAC Apr 01, 2025 15:18
--- NOTE | 2025-04-01 15:34 | RADIOLOGY REPORT ---
EXAM: DI HIP UNILATERAL 2 VIEWS CLINICAL HISTORY: HIP PAIN COMPARISON: None TECHNIQUE: DI HIP UNILATERAL 2 VIEWS Findings/Impression: 2 views of the right hip with frontal view of the pelvis. There is no evidence of an acute fracture, dislocation, blastic, or lytic lesions. No radiopaque foreign bodies. No joint effusion or superficial soft tissue abnormalities.
[2025-04-01 16:01] LABS: CREATININE 0.70 MG/DL (0.40-0.90); TOTAL CARBON DIOXIDE 27.9 MMOL/L (24-32); eCRCL 86 ML/MIN; eGFR > 90 ML/MIN
--- NOTE | 2025-04-01 16:37 | RADIOLOGY REPORT ---
CT CT HEAD Indication: confusion EXAM DATE: 04/01/2025 03:25 PM COMPARISON: None TECHNIQUE: CT of the head without intravenous contrast. RADIATION DOSE: CTDIvol: 51 mGy, DLP: 880 mGy*cm FINDINGS: There is no intracranial hemorrhage. There is no extra-axial fluid, mass, mass effect or midline shif t. The ventricles are midline and normal in size. Basilar cisterns are patent. Polanco-white differentia tion is maintained. The paranasal sinuses and mastoids are well-pneumatized. Imaged portion of the orbits are unremarkabl e. IMPRESSION: No intracranial hemorrhage or mass effect.
[2025-04-01 17:05] LABS: MEAN PLATELET VOLUME 9.8 FL (7.4-10.4); RED CELL DISTRIBUTION WIDTH 17.8 % (11.5-14.5)
[2025-04-01] MEDS ORDERED: HYDROmorphone inj. 0.5 MG/0.5 ML DISP.SYRIN IV PRN (19:35)
[2025-04-01] MEDS: normal saline 1000ml 1,000 ML IV SCH (19:35)
[2025-04-01] MEDS ORDERED: albuterol 2.5 MG/3 ML nebule NEB PRN (19:35)
[2025-04-01] MEDS ORDERED: magnesium Cl slow-release 64mg tablet PO PRN (19:35)
[2025-04-01] MEDS ORDERED: mag hydrox/Alum hydrox/simeth 30ml oral suspension PO PRN (19:35)
[2025-04-01] MEDS ORDERED: magnesium sulf-water 2g/50mL 50 ML IV PRN (19:35)
[2025-04-01] MEDS ORDERED: HYDROcodone/acetaminophen 10/325mg tab PO PRN (19:35)
[2025-04-01] MEDS ORDERED: HYDROmorphone/PF 0.2 MG/ML SYRINGE IV PRN (19:35)
[2025-04-01] MEDS ORDERED: magnesium sulf-water 4G/100mL 100 ML IV PRN (19:35)
[2025-04-01] MEDS ORDERED: potassium Cl 20 mEq SR tablet PO PRN (19:35)
[2025-04-01] MEDS ORDERED: HYDROcodone/acetaminophen 5mg/325mg tablet PO PRN (19:35)
[2025-04-01] MEDS ORDERED: potassium Cl 40MEQ/1/2NS 520ml 520 ML IV PRN (19:35)
[2025-04-01] MEDS ORDERED: magnesium hydroxide 30ml (MOM) UD suspension PO PRN (19:35)
[2025-04-01] MEDS: docusate sod 100mg capsule PO SCH (20:00)
[2025-04-01] MEDS: K and/or MAG REPLACEMENT MC SCH (20:01)
[2025-04-01 20:55] VITALS: PULSE 51; RESP 12; O2SAT 98
--- NOTE | 2025-04-01 22:00 | HISTORY AND PHYSICAL-Residence ---
History & Physical Providers to CC Resident Creating Document: HIEN SALDANA, RES ~ History of Present Illness Primary Medical Doctor: ARIA Reason for Admit\Complaint: Altered level of consciousness History of Present Illness This is a 44-year-old homeless female with a history of seizure disorder (diagnosed in her 20s), hypothyroidism, diabetes (diagnosed six years ago), small fibre neuropathy, opioid use disorder and hepatitis-C was brought to the ER with a chief complaint of altered level of consciousness, weakness. Patient mother was concerned that she has high blood sugars which might be making her drowsy. Patient is a very poor and unreliable historian. She states that she has a bad headache in his had multiple falls in the last week and all of her body hurts. She denies any recent seizures, hematemesis, melena, fever, burning in urine. She is not currently taking any medications for her diabetes and does not have a PCP. She lives alone, does not have a home and states that her mother is her caregiver. Patient states that she has been sleeping in a wheelchair and was not taking any of her medications for seizures, diabetes or neuropathy. Patient does not want to be bothered and do not give any more history. She states that she has extensive psychiatric history with anxiety, depression, other psychiatric disorders. Allergies: Coded Allergies: codeine (Verified Allergy, Mild, HIVES, 04/01/25) morphine (Verified Allergy, Mild, HIVES, 04/01/25) cefazolin (Verified Allergy, Unknown, 04/01/25) lithium (Verified Allergy, Unknown, 04/01/25) penicillin V potassium (Verified Allergy, Unknown, 04/01/25) Home Medications Home Medications Active Past Medical History Past Medical History Seizures, hypothyroidism, diabetes, small fiber neuropathy, drug abuse, hepatitis-C Past Surgical History Surgical History Comment Unable to obtain Family History Family History: Patient reports no known family medical history. Past Social History Social History Comment Smokes about one pack per day, denies any alcohol use, history of opioid use disorders (IV heroin), last use seven months ago Smoking: Cigarettes, Greater than 1 pack/day Alcohol Use: Occasionally Drug Use: Methamphetamine Lives with: Other Lives In: Homeless Occupation: unemployed ROS ROS Unable to obtain Exam Vitals: Vital Signs Date Time Temp Pulse Resp B/P (MAP) Pulse Ox O2 Delivery O2 Flow Rate FiO2 04/01/25 21:47 55 12 103/55 (71) 97 04/01/25 20:55 Room Air* 0 21 04/01/25 14:37 97.6 General: Poor hygiene, drowsy, arousable and alert, oriented to time place person. HEENT: Atraumatic, normocephalic Neck: Supple, trachea midline, no masses or lymphadenopathy Chest: Severe diffuse wheezing bilaterally, no rales or crackles Cardiovascular: Regular rate and rhythm, S1-S2 heard, no murmurs or gallop sounds Abdomen: Soft, nontender, nondistended, bowel sounds heard Extremities: Able to move all extremities Central Nervous System: Normal sensory and motor exam, cranial nerve examination unremarkable Skin: Warm and dry Diagnostic Data Last Recorded Lab Results: 04/01/25 1657 04/01/25 1510 Advance Care Planning Advanced Care plannin - 30 Minutes (I spent a total of 17 minutes on reviewing various resuscitative measures/ ACP with the patient at the time of admission. The patient has decided on a full code status) Additional Plan Acute metabolic encephalopathy Differentials include drug-induced metabolic encephalopathy, drug withdrawal reaction CT head is negative for any acute intracranial abnormalities. Follow up with U tox, ABG COPD exacerbation Started on ceftriaxone, azithromycin, Solu-Medrol 40 mg b.i.d.. Duo nebs q.4 scheduled Microcytic hypochromic anemia Iron-deficiency anemia Hemoglobin 10.7, MCV 70.3. Iron studies show low iron, low saturation normal TIBC suggestive of iron-deficiency. Denies melena, hematemesis Follow up with occult stool test. Starting on IV Ferrlecit 250 mg with NS Hypokalemia Potassium 3.1, replace per protocol Small fiber neuropathy Continue home medication gabapentin after med rec History of seizures Continue Keppra 750 mg b.i.d. after med rec ?Type 2 diabetes mellitus Currently not on hyperglycemia hypoglycemia protocol. Blood sugars 125, 105. A1c 5.6. Carb controlled diet History of opioid use disorder History of hepatitis-C Generalized body pains Continue methadone after med rec. Avoid narcotics for pain management History of active tobacco use Substance use navigator, social worker psychiatric consult and nicotine patch 14 mg once daily. History of hypothyroidism History of anxiety, depression TSH 2.9. Continue levothyroxine 125 mcg, escitalopram 10 mg p.o. daily after med rec. Received 2 mg IM Ativan in the ED Code Status: Full code DVT Prophylaxis: Heparin Analgesia/Sedation: Tylenol p.r.n. Lines/Tubes: PIV Gi Prophylaxis: Protonix Nutrition: Regular diet PT: Yes Prognosis: Guarded Disposition: Admit to medical floor Hien Hassan MD Internal Medicine Resident PGY-1 Date of Service: Apr 01, 2025 Billing Provider: CATARINO PERRY MD,HIEN HASSAN, RES Apr 01, 2025 21:59
[2025-04-01] MEDS: normal saline 1000ml 1,000 ML IV STA (22:14)
[2025-04-01 22:32] LABS: APTT 32 SECONDS (22-32); INR 1.0 INR
[2025-04-01 22:39] LABS: % IRON SATURATION 7 % (11-46)
[2025-04-01 22:46] LABS: PRO BRAIN NATRIURETIC PEPTIDE 54.0 PG/ML (0-125)
[2025-04-01 23:00] VITALS: BP 120/65; PULSE 55; RESP 14; TEMP 97.5; O2SAT 99
[2025-04-01] MEDS: ipratropium/albuterol 3ml nebule NEB SCH (23:00)
[2025-04-01] MEDS: nicotine 14mg patch - 24hr TD SCH (23:00)
[2025-04-01 23:14] VITALS: RESP 19; O2SAT 96
[2025-04-01] MEDS: heparin, porcine 5000 units/ml vial SQ SCH (23:38)
[2025-04-01] MEDS: methylPREDNISolone sod succ/PF 40mg inj. IV SCH (23:38)
[2025-04-01] MEDS: azithromycin/NS 500mg/250ml 250 ML IV SCH (23:39)
[2025-04-01] MEDS: CefTRIAXone/D5W-Rocephin 1gm 50 ML IV SCH (23:39)
[2025-04-02] VITALS (10 sets, daily range): BP systolic 102–126; BP diastolic 55–77; PULSE 44–75; RESP 10–19; TEMP 97.1–97.5; O2SAT 91–100
[2025-04-02] MEDS: potassium Cl 20 mEq SR tablet PO PRN (01:37)
[2025-04-02] MEDS: sodium ferric gluc complex inj 250 MG in normal saline 100ml IV soln 100 ML IV SCH (01:52)
[2025-04-02] MEDS ORDERED: ipratropium/albuterol 3ml nebule NEB PRN (03:00)
[2025-04-02 08:23] LABS: MEAN PLATELET VOLUME 9.6 FL (7.4-10.4); RED CELL DISTRIBUTION WIDTH 17.8 % (11.5-14.5)
[2025-04-02 08:32] LABS: CHOL/HDL RATIO 2.8 (0.00-4.99); CREATININE 0.66 MG/DL (0.40-0.90); LDL CHOLESTEROL 62 MG/DL (50-100); TOTAL CARBON DIOXIDE 25.9 MMOL/L (24-32); eCRCL 91 ML/MIN; eGFR > 90 ML/MIN
--- NOTE | 2025-04-02 13:26 | PROGRESS NOTE- Residence ---
Progress Note - Resident Providers to CC Resident Creating Document: JOLYNN QUARLES RES ~ Antibiotic Timeout Antibiotic Ordered?: Yes If Yes, Indications: COPD If Yes, Anticipated Duration?: 5 days Subjective Patient evaluated and examined at the bedside. Patient complains of muscular and nonspecific pain, better than yesterday. Patient denies any fever, seizures, nausea, vomiting or any other symptoms. Patient states that she is recently homeless. Patient's mother was present and expressed great concern because her daughter is using a lot of street drugs and is hurting herself. Patient's mother is currently working as a caregiver and is not living in her house. For this reason, the patient can not live with her mother. Objective Vital Signs Date Time Temp Pulse Resp B/P (MAP) Pulse Ox O2 Delivery O2 Flow Rate FiO2 04/02/25 11:25 97.3 75 12 122/77 (92) 97 Room Air 04/02/25 08:30 0.0 21 Result Diagram: 04/02/25 0806 04/02/25 0806 General: Poor hygiene, drowsy, arousable and alert, oriented to time place person. HEENT: Atraumatic, normocephalic Neck: Supple, trachea midline, no masses or lymphadenopathy Chest: Moderate wheezing bilaterally, diminished air movement, no rales or crackles Cardiovascular: Regular rate and rhythm, S1-S2 heard, no murmurs or gallop sounds Abdomen: Soft, nontender, nondistended, bowel sounds heard Extremities: Able to move all extremities Central Nervous System: Normal sensory and motor exam, cranial nerve examination unremarkable Skin: Warm and dry Laboratory Tests Test 04/01/25 14:41 04/01/25 15:10 04/01/25 16:57 04/01/25 22:12 Glucometer 125 mg/dl Sodium Level 137 MMOL/L Potassium Level 3.1 MMOL/L Chloride Level 101 MMOL/L Carbon Dioxide Level 27.9 MMOL/L Anion Gap 8 Blood Urea Nitrogen 8 MG/DL Creatinine 0.70 MG/DL Estimated GFR/1.73 m2 > 90 ML/MIN BUN/Creatinine Ratio 11.4 Glucose Level 105 MG/DL Hemoglobin A1c 5.6 % Calcium Level 8.4 MG/DL Magnesium Level 1.9 MG/DL 2.0 MG/DL Total Bilirubin 0.4 MG/DL Aspartate Amino Transf (AST/SGOT) 35 U/L Alanine Aminotransferase (ALT/SGPT) 27 U/L Alkaline Phosphatase 74 IU/L Total Protein 7.1 G/DL Albumin 3.5 G/DL Globulin 3.6 G/DL Albumin/Globulin Ratio 1.0 Lipase 24 U/L Chemistry Comments White Blood Count 5.5 X10'3 Red Blood Count 4.91 X10'6 Hemoglobin 10.7 g/dl Hematocrit 34.5 % Mean Corpuscular Volume 70.3 FL Mean Corpuscular Hemoglobin 21.9 PG Mean Corpuscular Hemoglobin Concent 31.1 g/dL Red Cell Distribution Width 17.8 % Platelet Count 226 X10'3 Mean Platelet Volume 9.8 FL Neutrophils (%) (Auto) 60.5 % Lymphocytes (%) (Auto) 24.1 % Monocytes (%) (Auto) 7.6 % Eosinophils (%) (Auto) 7.1 % Basophils (%) (Auto) 0.7 % Neutrophils # (Auto) 3.3 X10'3 Lymphocytes # (Auto) 1.3 X10'3 Monocytes # (Auto) 0.4 X10'3 Eosinophils # (Auto) 0.4 X10'3 Basophils # (Auto) 0.0 X10'3 CBC Comment Prothrombin Time 10.7 SECONDS INR International Normalized Ratio 1.0 INR Activated Partial Thromboplast Time 32 SECONDS Coagulation Comments Lactic Acid Level 0.8 MMOL/L Iron Level 25 UG/DL Total Iron Binding Capacity 346 UG/DL Percent Iron Saturation 7 % Ferritin 11 NG/ML Pro-B-Type Natriuretic Peptide 54 PG/ML Procalcitonin < 0.05 NG/ML Thyroid Stimulating Hormone (TSH) 2.96 ulU/ml Test 04/02/25 08:06 White Blood Count 3.1 X10'3 Red Blood Count 4.80 X10'6 Hemoglobin 10.7 g/dl Hematocrit 33.6 % Mean Corpuscular Volume 70.0 FL Mean Corpuscular Hemoglobin 22.4 PG Mean Corpuscular Hemoglobin Concent 32.0 g/dL Red Cell Distribution Width 17.8 % Platelet Count 204 X10'3 Mean Platelet Volume 9.6 FL Neutrophils (%) (Auto) 85.2 % Lymphocytes (%) (Auto) 12.1 % Monocytes (%) (Auto) 2.2 % Eosinophils (%) (Auto) 0.2 % Basophils (%) (Auto) 0.3 % Neutrophils # (Auto) 2.7 X10'3 Lymphocytes # (Auto) 0.4 X10'3 Monocytes # (Auto) 0.1 X10'3 Eosinophils # (Auto) 0.0 X10'3 Basophils # (Auto) 0.0 X10'3 CBC Comment Sodium Level 138 MMOL/L Potassium Level 3.9 MMOL/L Chloride Level 107 MMOL/L Carbon Dioxide Level 25.9 MMOL/L Anion Gap 5 Blood Urea Nitrogen 7 MG/DL Creatinine 0.66 MG/DL Estimated GFR/1.73 m2 > 90 ML/MIN BUN/Creatinine Ratio 10.6 Glucose Level 133 MG/DL Calcium Level 8.3 MG/DL Magnesium Level 1.8 MG/DL Total Bilirubin 0.3 MG/DL Aspartate Amino Transf (AST/SGOT) 26 U/L Alanine Aminotransferase (ALT/SGPT) 20 U/L Alkaline Phosphatase 63 IU/L Total Protein 6.1 G/DL Albumin 2.9 G/DL Globulin 3.2 G/DL Albumin/Globulin Ratio 0.9 Triglycerides Level 36 MG/DL Cholesterol Level 112 MG/DL LDL Cholesterol 62 MG/DL HDL Cholesterol 40 MG/DL Cholesterol/HDL Ratio 2.8 Chemistry Comments Coagulation Studies Laboratory Tests Test 04/01/25 22:12 Prothrombin Time 10.7 SECONDS (9.0-12.0) INR International Normalized Ratio 1.0 INR Activated Partial Thromboplast Time 32 SECONDS (22-32) Coagulation Comments Counseling Services Smoking & Tobacco Cessation: 3-10 Minutes Assessment Assessment Acute metabolic encephalopathy Differentials include drug-induced metabolic encephalopathy, drug withdrawal reaction CT head is negative for any acute intracranial abnormalities. Follow up with U tox, ABG 04/02/25 Pending Toxicology Hydration with normal saline at 70 mL/hr Monitor for new symptoms History of depression in conjunction with opioid and tobacco abuse; 04/02/25 Social service consult pending Nicotine patch 14 mg once daily. Avoid narcotics for pain management Management with benzodiazepine if needed Monitor for signs of withdrawal COPD exacerbation We will continue the patient on ceftriaxone, azithromycin, Solu-Medrol 40 mg b.i.d.. Duo nebs q.4 scheduled Microcytic hypochromic anemia Iron-deficiency anemia Hemoglobin 10.7, MCV 70.3. Iron studies show low iron, low saturation normal TIBC suggestive of iron-deficiency. Denies melena, hematemesis Follow up with occult stool test. Starting on IV Ferrlecit 250 mg with NS. 04/02/25 We will continue iron infusion Follow-up with PCP after discharge for further investigation Hypokalemia 04/02/25 Potassium 3.1 at presentation, now 3.9 Small fiber neuropathy Patient has not been using any medication the past few weeks History of seizures Patient mention using Keppra 750 mg b.i.d. a while ago but has not been using for weeks. She does not follow-up with neurologist and does not have a seizure in years. History of hypothyroidism and hyperglycemia TSH 2.9. We will prescribe the last reported dose of levothyroxine 125 mcg A1c 5.6. We will monitor patient's glucose. No treatment recommended at this time. Code Status: Full code DVT Prophylaxis: Heparin Analgesia/Sedation: Tylenol p.r.n. Lines/Tubes: PIV Gi Prophylaxis: Protonix Nutrition: Regular diet PT: Yes Prognosis: Guarded Disposition: Continue medical treatment. Pending social service. Date of Service: Apr 02, 2025 Billing Provider: BECKY DUDLEY MD Common Visit Codes: [id number] INP/OBS CARE(HIGH) JOLYNN QUARLES, RES Apr 02, 2025 13:26 BECKY DUDLEY MD Apr 02, 2025 15:51
[2025-04-02] MEDS: normal saline 1000ml 1,000 ML IV SCH (13:40)
[2025-04-02] MEDS: ondansetron/PF 4mg/2ml inj IV PRN (16:18)
[2025-04-02 23:08] LABS: LEUKOCYTE ESTERASE ,URINE NEGATIVE (Neg); NITRITES, URINE NEGATIVE (Neg); OCCULT BLOOD,URINE NEGATIVE (Neg)
[2025-04-02 23:09] LABS: URINE HCG NEGATIVE (NEG)
[2025-04-02 23:11] LABS: UA COLLECTION TYPE NON-SPECIFIED
[2025-04-02 23:41] LABS: URINE AMPHETAMINE SCREEN POSITIVE (Neg); URINE BARBITUATE SCREEN NEGATIVE (Neg); URINE BENZODIAZEPINES SCREEN NEGATIVE (Neg); URINE COCAINE SCREEN NEGATIVE (Neg); URINE METHADONE SCREEN NEGATIVE (Neg); URINE OPIATE SCREEN NEGATIVE (Neg); URINE PHENCYCLIDINE SCREEN NEGATIVE (Neg)
[2025-04-03] VITALS (10 sets, daily range): BP systolic 95–110; BP diastolic 44–70; PULSE 49–82; RESP 12–19; TEMP 97.3–97.9; O2SAT 91–100
[2025-04-03 06:55] LABS: MEAN PLATELET VOLUME 9.8 FL (7.4-10.4); RED CELL DISTRIBUTION WIDTH 17.9 % (11.5-14.5)
[2025-04-03 07:22] LABS: CREATININE 0.60 MG/DL (0.40-0.90); TOTAL CARBON DIOXIDE 24.6 MMOL/L (24-32); eCRCL 100 ML/MIN; eGFR > 90 ML/MIN
[2025-04-03 07:38] LABS: LYMPHOCYTES % (MANUAL) 3.0 % (21-51); MONOCYTES % (MANUAL) 1.0 % (2-12); NEUTROPHILS % (MANUAL) 96.0 % (42-75)
[2025-04-03 07:39] LABS: ELLIPTOCYTES FEW; PLATELET ESTIMATE NORMAL
[2025-04-03] MEDS: polyethylene glycol 3350 17gm powd pack PO SCH (10:15)
--- NOTE | 2025-04-03 10:16 | PROGRESS NOTE- Residence ---
Progress Note - Resident Providers to CC Resident Creating Document: LISANDRA BOURGEOIS, RES ~ Subjective Jacob was seen and examined at bedside. Patient evaluated and examined at the bedside. Patient complains of muscular and nonspecific pain, better than yesterday. Patient denies any fever, seizures, nausea, vomiting or any other symptoms. Patient states that she is recently homeless. Patient's mother was present and expressed great concern because her daughter is using a lot of street drugs and is hurting herself. Patient's mother is currently working as a caregiver and is not living in her house. For this reason, the patient can not live with her mother. Objective Vital Signs Date Time Temp Pulse Resp B/P (MAP) Pulse Ox O2 Delivery O2 Flow Rate FiO2 04/03/25 08:20 12 92 Room Air 04/03/25 08:09 57 0 21 04/03/25 06:45 97.3 95/47 (63) Result Diagram: 04/03/2561804/03/25618 Coagulation Studies Laboratory Tests Test 04/01/25 22:12 Prothrombin Time 10.7 SECONDS (9.0-12.0) INR International Normalized Ratio 1.0 INR Activated Partial Thromboplast Time 32 SECONDS (22-32) Coagulation Comments Assessment Assessment Acute metabolic encephalopathy Differentials include drug-induced metabolic encephalopathy, drug withdrawal reaction CT head is negative for any acute intracranial abnormalities. Follow up with U tox, ABG 04/02/25 Pending Toxicology Hydration with normal saline at 70 mL/hr Monitor for new symptoms History of depression in conjunction with opioid and tobacco abuse; 04/02/25 Social service consult pending Nicotine patch 14 mg once daily. Avoid narcotics for pain management Management with benzodiazepine if needed Monitor for signs of withdrawal COPD exacerbation We will continue the patient on ceftriaxone, azithromycin, Solu-Medrol 40 mg b.i.d.. Duo nebs q.4 scheduled Microcytic hypochromic anemia Iron-deficiency anemia Hemoglobin 10.7, MCV 70.3. Iron studies show low iron, low saturation normal TIBC suggestive of iron-deficiency. Denies melena, hematemesis Follow up with occult stool test. Starting on IV Ferrlecit 250 mg with NS. 04/02/25 We will continue iron infusion Follow-up with PCP after discharge for further investigation Hypokalemia 04/02/25 Potassium 3.1 at presentation, now 3.9 Small fiber neuropathy Patient has not been using any medication the past few weeks History of seizures Patient mention using Keppra 750 mg b.i.d. a while ago but has not been using for weeks. She does not follow-up with neurologist and does not have a seizure in years. History of hypothyroidism and hyperglycemia TSH 2.9. We will prescribe the last reported dose of levothyroxine 125 mcg A1c 5.6. We will monitor patient's glucose. No treatment recommended at this time. Code Status: Full code DVT Prophylaxis: Heparin Analgesia/Sedation: Tylenol p.r.n. Lines/Tubes: PIV Gi Prophylaxis: Protonix Nutrition: Regular diet PT: Yes Prognosis: Guarded Disposition: Continue medical treatment. Pending social service. Date of Service: Apr 03, 2025 Billing Provider: BECKY DUDLEY MD, PRAVAHIKA, RES Apr 03, 2025 10:16
--- NOTE | 2025-04-03 11:37 | PROGRESS NOTE- Residence ---
Progress Note - Resident Providers to CC Resident Creating Document: JAVI BOURGEOISMUNIRBRAEDENBLAISE ~ Antibiotic Timeout Antibiotic Ordered?: Yes Subjective Paient was seen and examined at bedside. No new complaints reported. She reported that she stopped taking her seizure medications about one year ago. Her last seizure episode was four months ago. She did not visit hospital at the time. Objective Vital Signs Date Time Temp Pulse Resp B/P (MAP) Pulse Ox O2 Delivery O2 Flow Rate FiO2 04/03/25 11:00 97.3 73 15 108/70 (83) 100 04/03/25 08:20 Room Air 04/03/25 08:09 0 21 Result Diagram: 04/03/2561804/03/25618 General: Poor hygiene, drowsy, arousable and alert, oriented to time place person. HEENT: Atraumatic, normocephalic Neck: Supple, trachea midline, no masses or lymphadenopathy Chest: Moderate wheezing bilaterally, diminished air movement, no rales or crackles Cardiovascular: Regular rate and rhythm, S1-S2 heard, no murmurs or gallop sounds Abdomen: Soft, nontender, nondistended, bowel sounds heard Extremities: Able to move all extremities Central Nervous System: Normal sensory and motor exam, cranial nerve examination unremarkable Skin: Warm and dry Coagulation Studies Laboratory Tests Test 04/01/25 22:12 Prothrombin Time 10.7 SECONDS (9.0-12.0) INR International Normalized Ratio 1.0 INR Activated Partial Thromboplast Time 32 SECONDS (22-32) Coagulation Comments Assessment Assessment Acute metabolic encephalopathy Differentials include drug-induced metabolic encephalopathy, drug withdrawal reaction CT head is negative for any acute intracranial abnormalities. New tox is positive for fentanyl and amphetamine. Hydration with normal saline at 70 mL/hr Monitor for new symptoms History of depression in conjunction with opioid and tobacco abuse; Positive drug screen for methamphetamine and fentanyl Social service consult pending Nicotine patch 14 mg once daily. Avoid narcotics for pain management COPD exacerbation We will continue the patient on ceftriaxone, azithromycin, Solu-Medrol 40 mg b.i.d.. Duo nebs q.4 scheduled 04/03/20259158-[id number]-[id number] reduced to 20 mg b.i.d. Microcytic hypochromic anemia Iron-deficiency anemia Hemoglobin 10.7, MCV 70.3. Iron studies show low iron, low saturation normal TIBC suggestive of iron-deficiency. Denies melena, hematemesis Follow up with occult stool test. Starting on IV Ferrlecit 250 mg with NS. 04/02/25 We will continue iron infusion Follow-up with PCP after discharge for further investigation 04/03/2025-IV iron stopped, started on p.o. iron supplements Hypokalemia-improved 04/02/25 Potassium 3.1 at presentation, now 3.9 04/03/2025-normal potassium levels. Small fiber neuropathy Patient has not been using any medication the past few weeks 04/03/2025-we will consider restarting gabapentin. History of seizures Patient mention using Keppra 750 mg b.i.d. a while ago but has not been using for about one year Last seizure episode was four months ago 04/03/2025-we will consider restarting Keppra. History of hypothyroidism and hyperglycemia TSH 2.9. We will prescribe the last reported dose of levothyroxine 125 mcg A1c 5.6. We will monitor patient's glucose. No treatment recommended at this time. Code Status: Full code DVT Prophylaxis: Heparin Analgesia/Sedation: Tylenol p.r.n. Lines/Tubes: PIV Gi Prophylaxis: Protonix Nutrition: Regular diet PT: Yes Prognosis: Guarded Disposition: Continue medical treatment. Pending social service. Date of Service: Apr 03, 2025 Billing Provider: BECKY DUDLEY MD Common Visit Codes: [id number] INP/OBS CARE(HIGH) LISANDRA BOURGEOIS, RES Apr 03, 2025 11:37 BECKY DUDLEY MD Apr 03, 2025 18:11
[2025-04-03] MEDS: docusate sod 100mg capsule PO SCH (20:22)
[2025-04-03] MEDS: iron polysaccharide complex 150mg capsule PO SCH (20:22)
[2025-04-03] MEDS: methylPREDNISolone sod succ/PF 40mg inj. IV SCH (20:23)
[2025-04-04] VITALS (10 sets, daily range): BP systolic 95–142; BP diastolic 48–80; PULSE 51–80; RESP 14–20; TEMP 97.5–98.2; O2SAT 94–98
[2025-04-04 06:24] LABS: MEAN PLATELET VOLUME 9.9 FL (7.4-10.4); RED CELL DISTRIBUTION WIDTH 18.1 % (11.5-14.5)
[2025-04-04 06:59] LABS: CREATININE 0.59 MG/DL (0.40-0.90); TOTAL CARBON DIOXIDE 26.9 MMOL/L (24-32); eCRCL 102 ML/MIN; eGFR > 90 ML/MIN
--- NOTE | 2025-04-04 13:27 | PROGRESS NOTE- Residence ---
Progress Note - Resident Providers to CC Resident Creating Document: JOLYNN QUARLES RES ~ Antibiotic Timeout Antibiotic Ordered?: Yes If Yes, Indications: COPD If Yes, Anticipated Duration?: 5 Subjective Patient was seen and examined at bedside. Patient is walking but reports right knee pain. Patient has tolerated regular diet and today is awake and answering questions. No new complaints reported. Objective Vital Signs Date Time Temp Pulse Resp B/P (MAP) Pulse Ox O2 Delivery O2 Flow Rate FiO2 04/04/25 12:33 80 20 97 Room Air* 0 21 04/04/25 10:56 97.5 100/54 (69) Result Diagram: 04/04/25 0552 04/04/25 0552 General: Poor hygiene, drowsy, arousable and alert, oriented to time place person. HEENT: Atraumatic, normocephalic Neck: Supple, trachea midline, no masses or lymphadenopathy Chest: Moderate wheezing bilaterally, diminished air movement, no rales or crackles Cardiovascular: Regular rate and rhythm, S1-S2 heard, no murmurs or gallop sounds Abdomen: Soft, nontender, nondistended, bowel sounds heard Extremities: Able to move all extremities. Right knee edema, mild pain and crepitation noted on knee extension Central Nervous System: Normal sensory and motor exam, cranial nerve examination unremarkable Skin: Warm and dry Laboratory Tests Test 04/02/25 22:58 04/03/25 06:19 04/04/25 05:52 Urine Specimen Description Non-specified Urine Color Yellow Urine Clarity Clear Urine pH 6.0 Urine Specific Crawford >=1.030 Urine Protein Negative mg/dl Urine Glucose (UA) Negative mg/dl Urine Ketones Negative mg/dl Urine Occult Blood Negative Urine Nitrite Negative Urine Bilirubin Negative Urine Urobilinogen 1.0 E.U/dL Urine Leukocyte Esterase Negative Urine Culture Indicated Not ind Volume Urine Centrifuged 10 ml Urine HCG, Qualitative Negative Urine Comment Urine Opiates Screen Negative Urine Methadone Screen Negative Urine Fentanyl Screen Positive Urine Barbiturates Screen Negative Urine Phencyclidine Screen Negative Urine Amphetamines Screen Positive Urine Benzodiazepines Screen Negative Urine Cocaine Screen Negative Urine Cannabinoids Screen Drug Screen Comment White Blood Count 11.7 X10'3 8.0 X10'3 Red Blood Count 4.59 X10'6 4.23 X10'6 Hemoglobin 10.2 g/dl 9.5 g/dl Hematocrit 32.3 % 30.0 % Mean Corpuscular Volume 70.3 FL 71.0 FL Mean Corpuscular Hemoglobin 22.1 PG 22.4 PG Mean Corpuscular Hemoglobin Concent 31.5 g/dL 31.5 g/dL Red Cell Distribution Width 17.9 % 18.1 % Platelet Count 179 X10'3 168 X10'3 Mean Platelet Volume 9.8 FL 9.9 FL Neutrophils (%) (Auto) % 85.0 % Lymphocytes (%) (Auto) % 11.4 % Monocytes (%) (Auto) % 3.1 % Eosinophils (%) (Auto) % 0 % Basophils (%) (Auto) % 0.5 % Neutrophils # (Auto) X10'3 6.8 X10'3 Lymphocytes # (Auto) X10'3 0.9 X10'3 Monocytes # (Auto) X10'3 0.2 X10'3 Eosinophils # (Auto) X10'3 0.0 X10'3 Basophils # (Auto) X10'3 0.0 X10'3 CBC Comment Differential Total Cells Counted 100 Neutrophils % (Manual) 96.0 % Lymphocytes % (Manual) 3.0 % Monocytes % (Manual) 1.0 % Platelet Estimate Normal Red Blood Cell Morphology Perf Basophilic Stippling Anisocytosis 1+ Microcytosis 1+ Elliptocytes Few Sodium Level 139 MMOL/L 140 MMOL/L Potassium Level 4.4 MMOL/L 4.1 MMOL/L Chloride Level 107 MMOL/L 107 MMOL/L Carbon Dioxide Level 24.6 MMOL/L 26.9 MMOL/L Anion Gap 7 6 Blood Urea Nitrogen 11 MG/DL 10 MG/DL Creatinine 0.60 MG/DL 0.59 MG/DL Estimated GFR/1.73 m2 > 90 ML/MIN > 90 ML/MIN BUN/Creatinine Ratio 18.3 16.9 Glucose Level 115 MG/DL 101 MG/DL Calcium Level 8.4 MG/DL 8.3 MG/DL Magnesium Level 1.9 MG/DL 1.9 MG/DL Total Bilirubin 0.1 MG/DL 0.1 MG/DL Aspartate Amino Transf (AST/SGOT) 18 U/L 14 U/L Alanine Aminotransferase (ALT/SGPT) 18 U/L 18 U/L Alkaline Phosphatase 56 IU/L 53 IU/L Total Protein 5.6 G/DL 5.6 G/DL Albumin 2.6 G/DL 2.7 G/DL Globulin 3.0 G/DL 2.9 G/DL Albumin/Globulin Ratio 0.9 0.9 Chemistry Comments Coagulation Studies Laboratory Tests Test 04/01/25 22:12 Prothrombin Time 10.7 SECONDS (9.0-12.0) INR International Normalized Ratio 1.0 INR Activated Partial Thromboplast Time 32 SECONDS (22-32) Coagulation Comments Assessment Assessment Acute metabolic encephalopathy Differentials include drug-induced metabolic encephalopathy, drug withdrawal reaction CT head is negative for any acute intracranial abnormalities. New tox is positive for fentanyl and amphetamine. Hydration with normal saline at 70 mL/hr Monitor for new symptoms 04/04/25 Patient is showing clear signs of improvement and returned to baseline History of depression in conjunction with opioid and tobacco abuse; Positive drug screen for methamphetamine and fentanyl Nicotine patch 14 mg once daily. Avoid narcotics for pain management COPD exacerbation We will continue the patient on ceftriaxone, azithromycin, Solu-Medrol 40 mg b.i.d.. Duo nebs q.4 scheduled 04/03/20257841-[id number] reduced to 20 mg b.i.d. 04/04/25-stopped azithromycin. Continue Solu-Medrol, ceftriaxone and inhaler therapy Microcytic hypochromic anemia Iron-deficiency anemia Hemoglobin 10.7, MCV 70.3. Iron studies show low iron, low saturation normal TIBC suggestive of iron-deficiency. Denies melena, hematemesis Follow up with occult stool test. Started on IV Ferrlecit 250 mg with NS. 04/02/25 We will continue iron infusion Follow-up with PCP after discharge for further investigation 04/03/2025-IV iron stopped, started on p.o. iron supplements Hypokalemia-improved 04/02/25 Potassium 3.1 at presentation, now 3.9 04/04/2025-normal potassium levels. Small fiber neuropathy Patient has not been using any medication the past few weeks 04/04/2025-patient should follow-up with PCP after discharge History of seizures Patient mention using Keppra 750 mg b.i.d. a while ago but has not been using for about one year Last seizure episode was four months ago 04/03/2025-patient should follow-up with PCP after discharge History of hypothyroidism and hyperglycemia TSH 2.9. We will prescribe the last reported dose of levothyroxine 125 mcg A1c 5.6. We will monitor patient's glucose. No treatment recommended at this time. Code Status: Full code DVT Prophylaxis: Heparin Analgesia/Sedation: Tylenol p.r.n. Lines/Tubes: PIV Gi Prophylaxis: Protonix Nutrition: Regular diet PT: Yes Prognosis: Guarded Disposition: Significant clinical improvement. Patient is homeless. Case management working in this case. Date of Service: Apr 04, 2025 Billing Provider: BECKY DUDLEY MD Common Visit Codes: [id number] INP/OBS CARE(HIGH) JOLYNN QUARLES, RES Apr 04, 2025 13:27 BECKY DUDLEY MD Apr 04, 2025 17:59
[2025-04-05 02:00] VITALS: BP 123/70; PULSE 66; RESP 12; TEMP 98.1; O2SAT 94
[2025-04-05 06:50] LABS: MEAN PLATELET VOLUME 9.9 FL (7.4-10.4); RED CELL DISTRIBUTION WIDTH 18.4 % (11.5-14.5)
[2025-04-05 07:00] VITALS: BP 140/92; PULSE 59; RESP 18; TEMP 98.2; O2SAT 97
[2025-04-05 07:48] LABS: CREATININE 0.67 MG/DL (0.40-0.90); TOTAL CARBON DIOXIDE 26.4 MMOL/L (24-32); eCRCL 90 ML/MIN; eGFR > 90 ML/MIN
[2025-04-05 07:50] VITALS: PULSE 76; RESP 16; O2SAT 95
[2025-04-05 08:00] VITALS: RESP 18; O2SAT 97
--- NOTE | 2025-04-05 08:44 | RADIOLOGY REPORT ---
PROCEDURE: Right knee radiographs. INDICATION: KNEE PAIN TECHNIQUE: 3 views of the right knee were obtained. COMPARISON: None FINDINGS: There is no evidence of fracture or dislocation. Medial and lateral compartment joint spac e narrowing and osteophyte. The soft tissues are unremarkable. IMPRESSION: 1. No fracture or dislocation. 2. Degenerative changes in the knee.
[2025-04-05] MEDS ORDERED: ACET-1008 PO (10:54)
[2025-04-05] MEDS ORDERED: ALBU2.5V7 NEB (10:55)
[2025-04-05] MEDS ORDERED: CEFD300C3 PO (10:55)
[2025-04-05] MEDS ORDERED: PRED10TA23 PO (10:55)
[2025-04-05] MEDS ORDERED: BUDE10.22 INH (10:55)
[2025-04-05] MEDS ORDERED: LEVO125T8 PO (10:55)
[2025-04-05 11:00] VITALS: BP 122/65; PULSE 90; RESP 20; TEMP 97.2; O2SAT 91
--- NOTE | 2025-04-05 16:02 | DISCHARGE SUMMARY-Residence ---
Discharge Summary Providers to CC Resident Creating Document: JOLYNN QUARLES RES ~ Discharge Summary Admission Diagnosis: Altered level of consciousness Hospital Course DATE OF ADMISSION: 04/01/25 DATE OF DISCHARGE: 04/05/25 Discharge Diagnosis\Comment: Acute metabolic encephalopathy secondary to drug abuse Operations\Procedures: None Consultants: None Complications: None Condition on DC: Stable New Medications: Albuterol Sulfate (Albuterol Sulfate) 2.5 Mg/3 Ml Vial.neb 1 VIAL NEB Q4HPRN PRN for wheezing, #150 ML 0 Refills Budesonide/Formoterol Fumarate (Symbicort 80-4.5 Mcg Inhaler) 80 Mcg-4.5 Mcg/Actuation Hfa.aer.ad 2 PUFFS INH Q12H for 30 Days, GM 0 Refills Cefdinir (Cefdinir) 300 Mg Capsule 1 CAP PO Q12H for 3 Days, #6 CAP 0 Refills Prednisone (Prednisone) 10 Mg Tablet 0 PO DAILY, #42 TAB Take 4 tabs daily x4 days, then 3 daily x4 days 2 daily x4 days 1 daily x4 days 1/2 daily x4 days then STOP Levothyroxine Sodium (Levothyroxine Sodium) 125 Mcg Tablet 125 MCG PO DAILY@07 for 30 Days, #30 TAB Discharge Summary: This is a 44-year-old homeless female with a history of seizure disorder, hypothyroidism, small fiber neuropathy, opioid use disorder and hepatitis-C was brought to the ER with a chief complaint of altered level of consciousness, weakness, headache and right knee pain after fall. Additionally, she has been feeling intermittent shortness of breath associated with chronic cough due to tobacco use. She also complains of dizziness and instability. She denied any recent seizures, hematemesis, melena, fever, burning in urine. She is not currently taking any medications for her diabetes and does not have a PCP. Further evaluation with head CT, hip x-ray and right knee x-ray were negative for acute pathologies. She lives alone, does not have a home and states that her mother is her caregiver. Patient reported that she has been sleeping in a wheelchair and was not taking any of her medications for seizures, diabetes or neuropathy. During the course of admission the patient completely recovered her mental status, returning to baseline. Patient was also treated for COPD exacerbation with ceftriaxone, azithromycin and methylprednisolone, with satisf actory improvement of symptoms. Today patient is awake, well-appearing, answering questions, denying any headache, dizziness, chest pain or shortness of Breath. She is clinically stable to be discharged. Case management will help the patient to find some partnership solution regarding her homeless status, given that the patient won't be able to go to the [place]. Discharge physical exam: General: Poor hygiene, drowsy, arousable and alert, oriented to time place person. HEENT: Atraumatic, normocephalic Neck: Supple, trachea midline, no masses or lymphadenopathy Chest: Moderate wheezing bilaterally, diminished air movement, no rales or crackles Cardiovascular: Regular rate and rhythm, S1-S2 heard, no murmurs or gallop sounds Abdomen: Soft, nontender, nondistended, bowel sounds heard Extremities: Able to move all extremities. Right knee edema, mild pain and crepitation noted on knee extension Central Nervous System: Normal sensory and motor exam, cranial nerve examination unremarkable Skin: Warm and dry Discharge lab results Hemoglobin 10.4 WBC 7.5 Platelet count 121 Sodium 140 Potassium 4.3 BUN 12 Creatinine 0.6 Right Knee X-ray on 04/05/2025: . No fracture or dislocation. Degenerative changes in the knee. Hip x-ray on 04/01/2025:There is no evidence of an acute fracture, dislocation, blastic, or lytic lesions. No radiopaque foreign bodies. No joint effusion or superficial soft tissue abnormalities. Head CT on 04/01/2025:There is no intracranial hemorrhage. There is no extra- axial fluid, mass, mass effect or midline shift. The ventricles are midline and normal in size. Basilar cisterns are patent. Polanco-white differentiation is maintained. Discharge instructions Follow up with PCP in two weeks. Requested to stop using methamphetamine and tobacco. Continuing to use Symbicort two puffs q.12h daily Use albuterol as needed Continue cefdinir 300 mg twice daily for three days use prednisolone as directed Call 911 or return to ER in case of of chest pain, shortness of breath Discharge medications: Cefdinir 300 mg twice daily for 3 days, Symbicort 2 puffs twice a day, prednisolone as directed, epidural was needed *Problems/Diagnosis: (1) Altered mental status Status: Resolved (2) COPD exacerbation Status: Acute Total Time Spent on D/C: Up to 30 Minutes Counseling Services Smoking & Tobacco Cessation: 3-10 Minutes (Patient was instructed to abstain from tobacco, alcohol and illegal drug use) Date of Service: Apr 05, 2025 Billing Provider: OREN PERSAUD MD Common Visit Codes: 22615-JGN/OBS DISCH DAY >30min Problem Qualifiers (1) Altered mental status: Altered mental status type: somnolence Qualified Codes: R40.0 - Somnolence JOLYNN QUARLES, RES Apr 05, 2025 15:57 OREN PERSAUD MD Apr 06, 2025 07:50
== END 2025-04-05 14:48 | disposition home or self-care (01) | DRG 812 ==
LOC: ER 14:35 → ED HOLD 19:43 → PCU 3S 22:39
PROVIDERS: ADMIT Internal Medicine Critical Care Medicine; ATTEND Internal Medicine
DX: T50.991A Poisoning by other drugs, medicaments and biological substances, accidental (unintentional), initial encounter (principal); G93.41 Metabolic encephalopathy; J44.1 Chronic obstructive pulmonary disease with (acute) exacerbation; E03.9 Hypothyroidism, unspecified; D50.9 Iron deficiency anemia, unspecified; E11.40 Type 2 diabetes mellitus with diabetic neuropathy, unspecified; G40.909 Epilepsy, unspecified, not intractable, without status epilepticus; F19.10 Other psychoactive substance abuse, uncomplicated; Z59.00 Homelessness unspecified; E87.6 Hypokalemia; F41.9 Anxiety disorder, unspecified; G43.909 Migraine, unspecified, not intractable, without status migrainosus; Y92.89 Other specified places as the place of occurrence of the external cause
CPT/HCPCS: 36415; 70450; 73502; 73564; 80053; 80061; 80305; 81003; 81025; 82728; 82948; 83036; 83540; 83550; 83605; 83690; 83735; 83880; 84145; 84443; 84466; 85007; 85025; 85610; 85730; 87040; 87081; 94760; 97116; 97161; 97530; 99285; G0378; J0456; J0696; J1644; J2405; J2916; J2919; J7030

== ENCOUNTER 2025-04-06 21:55 | Emergency (ER) | payer MEDICAID ==
[~2025-04-06] VITALS: Ht 160 cm; Wt 84.8 kg
[~2025-04-06 21:55] MED LIST changes: +ACET-1008 PO; +ALBU2.5V7 NEB; -ALBU8.5H17 IH; +BUDE10.22 INH; +CEFD300C3 PO; -ESCI-8 PO; -GABA-1555 PO; -GUAI120L55 PO; -LEVE750T PO; -LEVO-65 PO; -METH-603 PO; +PRED10TA23 PO
--- NOTE | 2025-04-06 22:31 | RADIOLOGY REPORT ---
CHEST RADIOGRAPH Indication: CP Technique: Single frontal view of the chest was obtained COMPARISON: DI CHEST,SINGLE VIEW on DOS: 08/08/23 FINDINGS: Lines and Tubes: None Lungs: Clear Pleura: No effusion. No pneumothorax. Cardiomediastinal contours: Unremarkable Bones: Unremarkable IMPRESSION: 1. No acute disease.
[2025-04-07 00:04] VITALS: TEMP 97.8
--- NOTE | 2025-04-07 00:37 | Physician Documentation ---
History of Present Illness ~ General Chief Complaint: Multiple Medical Complaints Stated Complaint: MULTIPLE MEDICAL COMPLAINTS Time Seen by MD: 00:28 Primary Medical Doctor: ARIA History of Present Illness Initial Comments Patient presents to the emergency room for generally not feeling well and shortness of breath. She was just admitted this past week for several days for COPD exacerbation along with metabolic encephalopathy. She was just discharged today and a half ago. She has not been able to pick up man her prescriptions because she states that has no directions on the medicines in the pharmacist we will not dispense him without directions. Patient notes increased swelling to bilateral lower extremities. Medication Reconciliation Allergies: Coded Allergies: codeine (Verified Allergy, Mild, HIVES, 04/01/25) morphine (Verified Allergy, Mild, HIVES, 04/01/25) cefazolin (Verified Allergy, Unknown, 04/01/25) lithium (Verified Allergy, Unknown, 04/01/25) penicillin V potassium (Verified Allergy, Unknown, 04/01/25) Scheduled Budesonide/Formoterol Fumarate (Symbicort 80-4.5 Mcg Inhaler), 2 PUFFS INH Q12H Cefdinir (Cefdinir), 1 CAP PO Q12H Levothyroxine Sodium (Levothyroxine Sodium), 125 MCG PO DAILY@07 Prednisone (Prednisone), 0 PO DAILY Scheduled PRN Acetaminophen (Tylenol), 1 TAB PO QDAY PRN PRN for pain or fever, (Reported) Albuterol Sulfate (Albuterol Sulfate), 1 VIAL NEB Q4HPRN PRN for wheezing Discontinued Medications Albuterol Sulfate (Proair Hfa), 2 PUFFS IH Q4H PRN for SOB or wheezing, (Reported) Discontinued Reason: patient no longer taking Escitalopram Oxalate (Escitalopram Oxalate), 1 TAB PO DAILY, (Reported) Discontinued Reason: patient no longer taking Gabapentin (Gabapentin), 1 TAB PO TID, (Reported) Discontinued Reason: patient no longer taking Guaifenesin/Codeine Phosphate (Codeine-Guaifen 10-100 mg/5 ml), 10 ML PO Q6H PRN for cough and congestion Discontinued Reason: patient no longer taking Levetiracetam (Levetiracetam), 1 TAB PO BID, (Reported) Discontinued Reason: patient no longer taking Levofloxacin (Levofloxacin), 500 MG PO Q24H@11 Discontinued Reason: patient no longer taking Levothyroxine Sodium (Levothyroxine Sodium), 1 TAB PO DAILY, (Reported) Discontinued Reason: patient no longer taking Methadone Hcl* (Dolophine*), 70 MG PO DAILY, (Reported) Discontinued Reason: patient no longer taking Past Medical History Past Medical History: Migraine, Seizures, Asthma, Hepatitis C, Thyroid (unspecified), Cellulitis, Anxiety Past Surgical History: no surgical history Patient History: Patient reports no known family medical history. Alcohol Use: Occasionally Drug Use: methamphetamine Lives with: Other Lives In: Homeless Occupation: unemployed Review of Systems ROS All review of systems negative except as per HPI Physical Exam Physical Exam Vital Signs: Temperature: 97.8, Source: Oral, Heart Rate: 70, Respiratory Rate: 16, BP: 129/75, Pulse Oximetry: 97, Weight: 84.750 Oxygen Flow Rate: 0 Physical Exam General: Patient is awake, alert, oriented x4 in no acute distress Head: Normocephalic and atraumatic. Eyes: Conjunctival normal. EOMI. PERRL. ENT: Mucous membranes moist. Neck: Supple, trachea is midline. Chest: Clear to auscultation bilaterally without rales, rhonchi, or wheezes. There is no accessory muscle use or retractions. Cardiac: RRR without murmurs, gallops, or rubs. Extremities: Normal strength. Normal range of motion. No deformities , 2+ dependent edema Progress Results/Orders Results/Orders Orders - MICK DUMONT MD Chest,Single View (04/06/25 22:21) Monitor (04/06/25 22:06) Saline Lock (04/06/25 22:06) Oxygen (04/06/25 22:06) Electrocardiogram (04/06/25 22:06) Hs Troponin I W Calculations (04/07/25 01:06) Completed Orders - MICK DUMONT MD Chest,Single View (04/06/25 22:21) Cbc/Diff (04/06/25 22:06) BMP (04/06/25 22:06) PBNP (04/06/25 22:06) Hs Troponin I W Calculations (04/06/25 22:06) Hs Troponin I W Calculations (04/07/25 00:06) Urinalysis, Cult If Indicated (04/07/25 00:29) Procalcitonin (04/07/25 00:29) Vital Signs 04/06/25 04/07/25 04/07/25 21:59 00:04 02:28 Temp 98.6 97.8 Pulse 76 70 Resp 18 16 18 B/P (MAP) 151/82 129/75 (93) Pulse Ox 96 97 O2 Flow Rate 0 0 Laboratory Tests Test 04/06/25 22:52 04/07/25 01:55 04/07/25 02:10 Troponin I High Sensitivity 20 21 White Blood Count 6.1 Red Blood Count 4.53 Hemoglobin 10.1 L Hematocrit 32.0 L Mean Corpuscular Volume 70.6 L Mean Corpuscular Hemoglobin 22.3 L Mean Corpuscular Hemoglobin Concent 31.5 L Red Cell Distribution Width 18.6 H Platelet Count 218 # Mean Platelet Volume 9.3 Neutrophils (%) (Auto) 58.5 Lymphocytes (%) (Auto) 30.5 Monocytes (%) (Auto) 7.1 Eosinophils (%) (Auto) 3.7 Basophils (%) (Auto) 0.2 Neutrophils # (Auto) 3.6 Lymphocytes # (Auto) 1.9 Monocytes # (Auto) 0.4 Eosinophils # (Auto) 0.2 Basophils # (Auto) 0.0 CBC Comment Sodium Level 139 Potassium Level 3.5 Chloride Level 102 Carbon Dioxide Level 32.1 H Anion Gap 5 L Blood Urea Nitrogen 11 Creatinine 0.64 Estimated GFR/1.73 m2 > 90 BUN/Creatinine Ratio 17.2 Glucose Level 83 Calcium Level 8.5 Troponin I High Sens Percent Delta 5 Troponin I Hi Sens Absolute Change 1 Pro-B-Type Natriuretic Peptide 776 H Albumin 3.2 L Procalcitonin 0.05 Chemistry Comments Urine Specimen Description Cln catch midstream Urine Color Yellow Urine Clarity Clear Urine pH 6.5 Urine Specific [place] 1.020 Urine Protein Negative Urine Glucose (UA) Negative Urine Ketones Negative Urine Occult Blood Negative Urine Nitrite Negative Urine Bilirubin Negative Urine Urobilinogen 0.2 Urine Leukocyte Esterase Negative Urine Culture Indicated Not ind Volume Urine Centrifuged 10 ml Urine Comment EKG/XRAY/CT/US/VASC/MRI EKG : Additional Comment EKG interpreted by myself shows time of 11/19/2008, rate 69, sinus rhythm, borderline left axis deviation, no ST changes Chest X-Ray : Additional Comments Exam: CHEST,SINGLE VIEW CHEST RADIOGRAPH Indication: CP Technique: Single frontal view of the chest was obtained COMPARISON: DI CHEST,SINGLE VIEW on DOS: 08/08/23 FINDINGS: Lines and Tubes: None Lungs: Clear Pleura: No effusion. No pneumothorax. Cardiomediastinal contours: Unremarkable Bones: Unremarkable IMPRESSION: 1. No acute disease. Medical Decision Making Findings Upon re-evaluation patient was sleeping flat no acute distress. She presented to the emergency room with not feeling well shortness of breath. Differentials include but are not limited to CHF, electrolyte disturbances, viral syndrome, deconditioning therefore emergent labs ordered as well as chest x-ray which were all reassuring. I do not feel patient was suffering from medical emergency. Compliance with her medication discussed. Departure Disposition: HOME / SELF CARE / HOMELESS Impression: Primary Impression: Dyspnea Condition: Stable Discharge Instructions: General Discharge Instructions Referrals: NO PRIMARY CARE PROVIDER (PCP) Signature Scribe Signature: No scribe Attestation: The note accurately reflects work and decisions made by me.Mick Dumont MD 04/07/25 03:06 MICK DUMONT MD Apr 07, 2025 00:36
[2025-04-07 02:25] LABS: LEUKOCYTE ESTERASE ,URINE NEGATIVE (Neg); NITRITES, URINE NEGATIVE (Neg); OCCULT BLOOD,URINE NEGATIVE (Neg)
[2025-04-07 02:25] LABS: MEAN PLATELET VOLUME 9.3 FL (7.4-10.4); RED CELL DISTRIBUTION WIDTH 18.6 % (11.5-14.5)
[2025-04-07 02:27] LABS: UA COLLECTION TYPE CLN CATCH MIDSTREAM
[2025-04-07 02:50] LABS: CREATININE 0.64 MG/DL (0.40-0.90); PRO BRAIN NATRIURETIC PEPTIDE 776 PG/ML (0-125); TOTAL CARBON DIOXIDE 32.1 MMOL/L (24-32); eCRCL 94 ML/MIN; eGFR > 90 ML/MIN
[2025-04-07 03:22] VITALS: BP 106/55; PULSE 57; RESP 16; O2SAT 95
--- NOTE | 2025-04-07 05:48 | ELECTROCARDIOGRAPH REPORT ---
[facility] Test Date: 2025-04-06 Test Time: 22:09:13 Pat Name: LISANDRA MARTÍNEZ Department: EMERGENCY ROOM Room: Gender: F Enrollment Services Vice President: ELIESER : 1980 Requested By: MELY PETERS Order Number: [id number] Reading MD: Measurements Intervals [place] Rate: 69 P: 49 NE: 144 QRS: 2 QRSD: 95 T: 34 QT: 431 QTc: 462 Interpretive Statements Sinus rhythm Low voltage, precordial leads Borderline T abnormalities, anterior leads Please click the below link to view image of tracing.
== END 2025-04-07 03:26 | disposition home or self-care (01) ==
LOC: ER 21:55
DX: R06.00 Dyspnea, unspecified (principal); M79.89 Other specified soft tissue disorders; F15.90 Other stimulant use, unspecified, uncomplicated; Z88.5 Allergy status to narcotic agent; Z88.8 Allergy status to other drugs, medicaments and biological substances
CPT/HCPCS: 36415; 71045; 80048; 81003; 83880; 84145; 84484; 85025; 93005; 99285

== ENCOUNTER 2025-04-20 09:59 | Emergency (ER) | payer MEDICAID ==
[2025-04-20] MEDS ORDERED: PRED10TA23 PO (10:15)
--- NOTE | 2025-04-20 10:16 | Physician Documentation ---
History of Present Illness ~ General Stated Complaint: MED CLEARANCE Time Seen by MD: 10:07 Primary Medical Doctor: ARIA History of Present Illness Initial Comments This 44-year-old female presents requesting a medical clearance to go to [facility] for detox and recovery from opioids. She had also complaining of shortness of breath secondary to COPD. She adds that she has already been placed on azithromycin. Speaking in clear sentences rapidly Medication Reconciliation Allergies: Coded Allergies: codeine (Verified Allergy, Mild, HIVES, 04/01/25) morphine (Verified Allergy, Mild, HIVES, 04/01/25) cefazolin (Verified Allergy, Unknown, 04/01/25) lithium (Verified Allergy, Unknown, 04/01/25) penicillin V potassium (Verified Allergy, Unknown, 04/01/25) Scheduled Budesonide/Formoterol Fumarate (Symbicort 80-4.5 Mcg Inhaler), 2 PUFFS INH Q12H Cefdinir (Cefdinir), 1 CAP PO Q12H Levothyroxine Sodium (Levothyroxine Sodium), 125 MCG PO DAILY@07 Prednisone (Prednisone), 0 PO DAILY Prednisone (Prednisone), 1 TAB PO BID Scheduled PRN Acetaminophen (Tylenol), 1 TAB PO QDAY PRN PRN for pain or fever, (Reported) Albuterol Sulfate (Albuterol Sulfate), 1 VIAL NEB Q4HPRN PRN for wheezing Past Medical History Past Medical History: Migraine, Seizures, Asthma, Hepatitis C, Thyroid (unspecified), Cellulitis, Anxiety Past Surgical History: no surgical history Patient History: Patient reports no known family medical history. Alcohol Use: Occasionally Drug Use: methamphetamine Lives with: Other Lives In: Homeless Occupation: unemployed Review of Systems All Other Systems at this time: Reviewed and Negative ROS As stated above in the HPI, otherwise all systems are reviewed and negative. Physical Exam Physical Exam Physical Exam General: Alert, no apparent distress. Respiratory: Right lung rosen notable wheezes, no respiratory distress Chest: No accessory muscle use. Cardiovascular: Regular rate and rhythm, no murmurs. Psychiatric: Normal mood and affect. Medical Decision Making Findings I offered the patient to albuterol she states she already has a prescription for that however I am going to prescribe a tapering dose of prednisone and she does not meet the criteria for any further evaluation who or anything that would prevent her from being medically cleared for [facility]. Departure Disposition: 01 HOME / SELF CARE / HOMELESS Impression: Primary Impression: COPD exacerbation Additional Impression: Opiate abuse, continuous Condition: Stable Discharge Instructions: Opioid Use Disorder Additional Instructions: Medically cleared for detox or opioid all recovery Referrals: NO PRIMARY CARE PROVIDER (PCP) Prescriptions Prednisone (Prednisone) 10 Mg Tablet 1 TAB PO BID for 5 Days, #10 TAB Prov: CARL STAUFFER NP 04/20/25 Education Educated: Patient Signature Scribe Signature: y Attestation: Scribed for Carl Stauffer Photo Print Specialist by Carl Stauffer - SANT[place] . 04/20/25 10:16 CARL STAFUFER NP Apr 20, 2025 10:16
== END 2025-04-20 10:22 | disposition home or self-care (01) ==
LOC: ER 10:00
DX: J44.1 Chronic obstructive pulmonary disease with (acute) exacerbation (principal); F11.10 Opioid abuse, uncomplicated; F15.90 Other stimulant use, unspecified, uncomplicated; G43.909 Migraine, unspecified, not intractable, without status migrainosus; F41.9 Anxiety disorder, unspecified; Z88.5 Allergy status to narcotic agent; Z88.1 Allergy status to other antibiotic agents; Z88.8 Allergy status to other drugs, medicaments and biological substances; Z59.00 Homelessness unspecified; Z88.0 Allergy status to penicillin; Z79.899 Other long term (current) drug therapy; Z56.0 Unemployment, unspecified; Z72.89 Other problems related to lifestyle
CPT/HCPCS: 99283

== ENCOUNTER 2025-06-01 01:48 | Inpatient (IN) | payer MEDICAID ==
[~2025-06-01] VITALS: Ht 160 cm; Wt 78.0 kg
[~2025-06-01 01:48] MED LIST changes: +HYDR-3965 PO; -PRED10TA23 PO
[2025-06-01] MEDS: levoFLOXACIN-Levaquin 500mg/D5 100 ML IV ONE (02:37)
[2025-06-01] MEDS: normal saline 1000ml 2,000 ML IV ONE (02:40)
[2025-06-01 02:42] LABS: MEAN PLATELET VOLUME 8.2 FL (7.4-10.4); RED CELL DISTRIBUTION WIDTH 20.8 % (11.5-14.5)
[2025-06-01 02:44] LABS: UA COLLECTION TYPE CLN CATCH MIDSTREAM
[2025-06-01 02:45] LABS: LEUKOCYTE ESTERASE ,URINE TRACE (Neg); OCCULT BLOOD,URINE LARGE (Neg)
[2025-06-01 03:06] LABS: NITRITES, URINE NEGATIVE (Neg)
[2025-06-01 03:07] LABS: CAL OXALATE CRYSTALS 2+ /HPF (NEGATIVE); MUCUS STRANDS FEW /LPF (Neg); SQUAMOUS EPITHELIAL CELL,UR FEW /LPF (FEW); URINE AMPHETAMINE SCREEN POSITIVE (Neg); URINE BARBITUATE SCREEN NEGATIVE (Neg); URINE BENZODIAZEPINES SCREEN NEGATIVE (Neg); URINE CANNABINOID SCREEN POSITIVE (Neg); URINE COCAINE SCREEN NEGATIVE (Neg); URINE METHADONE SCREEN POSITIVE (Neg); URINE OPIATE SCREEN POSITIVE (Neg); URINE PHENCYCLIDINE SCREEN NEGATIVE (Neg)
[2025-06-01 03:09] LABS: CREATININE 0.73 MG/DL (0.40-0.90); TOTAL CARBON DIOXIDE 25.7 MMOL/L (24-32); eCRCL 82 ML/MIN; eGFR 87 ML/MIN
[2025-06-01 03:10] LABS: YEAST MANY /HPF (NEGATIVE)
[2025-06-01 03:12] LABS: ETHANOL < 10 MG/DL (<10)
[2025-06-01 03:19] LABS: PLATELET ESTIMATE NORMAL
[2025-06-01] MEDS: ketorolac trometh 15mg/ml vial 15 MG/ML ML IV ONE ×2 (03:31→05:04)
[2025-06-01] MEDS: phenazopyridine 100mg tablet PO ONE (03:32)
[2025-06-01] MEDS: diazepam inj 5 MG/ML inj. IV ONE (03:32)
[2025-06-01 03:40] LABS: URINE HCG NEGATIVE (NEG)
[2025-06-01] MEDS ORDERED: iohexol 300mg/ml 100ml inj. ONE (04:06)
[2025-06-01] MEDS: normal saline 1000ML IV soln IVB ONE ×2 (04:19→06:09)
--- NOTE | 2025-06-01 04:47 | Physician Documentation ---
History of Present Illness ~ Chief Complaint: Urinary Symptoms Stated Complaint: SEE CHIEF COMPLAINT M BLS Time Seen by MD: 02:07 Primary Medical Doctor: ARIA Source: patient, RN/MD, EMS, RN notes reviewed, EMS notes reviewed, old records Mode of Arrival: EMS Exam Limitations: no limitations HPI This patient states that she woke up yesterday with some very painful urination. Frequency urgency burning. She had some blood tinged urine. Also started having some low back pain and low-grade fever. She denies any recent sexual activity denies possibility of STDs. Patient reports she has a UTI. She is quite hysterical and history is somewhat limited because of her her extreme presentation of pain. Patient [place] and was in so much pain that she could not arredondo. Patient has multiple allergies to medications. Patient is a poor historian she is cursing yelling. Medication Reconciliation Allergies: Coded Allergies: codeine (Verified Allergy, Mild, HIVES, 06/01/25) morphine (Verified Allergy, Mild, HIVES, 06/01/25) cefazolin (Verified Allergy, Unknown, 06/01/25) lithium (Verified Allergy, Unknown, 06/01/25) penicillin V potassium (Verified Allergy, Unknown, 06/01/25) Scheduled Budesonide/Formoterol Fumarate (Symbicort 80-4.5 Mcg Inhaler), 2 PUFFS INH Q12H Cefdinir (Cefdinir), 1 CAP PO Q12H Levothyroxine Sodium (Levothyroxine Sodium), 125 MCG PO DAILY@07 Scheduled PRN Acetaminophen (Tylenol), 1 TAB PO QDAY PRN PRN for pain or fever, (Reported) Albuterol Sulfate (Albuterol Sulfate), 1 VIAL NEB Q4HPRN PRN for wheezing Past Medical History Past Medical History: Migraine, Seizures, Asthma, Hepatitis C, Thyroid (unspecified), Cellulitis, Anxiety Past Surgical History: no surgical history Patient History: Patient reports no known family medical history. Alcohol Use: Occasionally Drug Use: methamphetamine Lives with: Other Lives In: Homeless Occupation: unemployed Review of Systems All Other Systems at this time: Reviewed and Negative Physical Exam Vital Signs: RN Vital Signs have been reviewed: Yes, Temperature: 100.8, Source: Oral, Heart Rate: 75, Respiratory Rate: 14, BP: 114/79, Pulse Oximetry: 97, Weight: 78.000 Oxygen Flow Rate: 0 Physical Exam General: The patient is well developed, well nourished, ill appearing and is in moderate acute distress. Poor coping Skin: [place], warm and dry with no rashes. HEENT: Head was normocephalic and atraumatic. Eyes - pupils equal, round, reactive to light and accommodation. Extraocular movements were intact. Conjunctivae were nonicteric. The mouth and oropharynx were clear with moist mucous membranes. Neck: Supple and nontender. Chest: Clear to auscultation bilaterally without wheezes, rales or rhonchi. No accessory muscle use. Heart: Rate regular and rhythmic. S1, S2. No murmurs. Palpation of the chest wall was normal. Abdomen: Soft, nontender and nondistended. Positive bowel sounds. No guarding or rebound. No hepatosplenomegaly or palpable masses. Slight CVA tenderness bilaterally, positive suprapubic discomfort to palpation Extremities: No cyanosis, clubbing or edema. The patient moves all extremities. Pulses were equal and symmetric. Neurologic: Motor sensory grossly intact. Psychologic: The patient was oriented to person, place and time. The patient demonstrated poor judgement and insight. Progress Progress Note 5:30 a.m. discussed the case with the hospitalist who kindly agreed to admit the patient for further workup and care. Results/Orders Reviewed/noted all lab results: Yes Results/Orders Orders - ONI LI MD Culture Blood (06/01/25 02:00) Monitor (06/01/25 02:00) Saline Lock (06/01/25 02:00) Cult Urine + [place] Ct (06/01/25 03:10) Ct Abdomen Pelvis (06/01/25 03:19) Page Hospitalist (06/01/25 04:49) Fill Out Med Reconciliation (06/01/25 04:49) Ultrasound Pelvis W/Orwo Dplx (06/01/25 05:25) Completed Orders - ONI LI MD Cbc/Diff (06/01/25 02:00) Procalcitonin (06/01/25 02:00) BMP (06/01/25 02:00) Lacticsepsis (06/01/25 02:00) Normal Saline 1000ml (0.9% Sodium Chlori (06/01/25 02:10) Levofloxacin-Levaquin 500mg/D5 (Levaquin (06/01/25 02:10) Ethanol (06/01/25 02:09) Drug Screen, Urine (06/01/25 02:09) CK (06/01/25 02:26) Hydromorphone 1 Mg/Ml/Pf (Dilaudid Inj.) (06/01/25 02:35) Liver Panel (06/01/25 02:35) Ua W/Microscopic, Cult If Ind (06/01/25 02:23) Phenazopyridine Tablet (Pyridium Tablet) (06/01/25 03:20) Ketorolac Trometh 15mg/Ml Vial (Toradol (06/01/25 03:20) Normal Saline 1000ml (0.9% Sodium Chlori (06/01/25 03:20) Ct Abdomen Pelvis (06/01/25 03:19) Diazepam Inj (Valium Inj) (06/01/25 03:20) Hcg, Ur Ql (06/01/25 03:30) Iohexol 300mg/Ml 100ml Inj. (Omnipaque-3 (06/01/25 04:06) Ketorolac Trometh 15mg/Ml Vial (Toradol (06/01/25 04:50) Normal Saline 1000ml (0.9% Sodium Chlori (06/01/25 04:50) Ceftriaxone 2gm/D5w 50ml Bag (Rocephin 2 (06/01/25 04:50) Medications Received in ER Medications (Trade) Dose Ordered Sig/Yimi Route PRN Reason Start Time Stop Time Status Last Admin Dose Admin Sodium Chloride 2,000 ml @ 666.666 mls/hr ONCE ONCE IV 06/01/25 02:10 06/01/25 05:09 DC 06/01/25 02:40 666.666 MLS/HR Levofloxacin 100 ml @ 100 mls/hr ONCE ONCE IV 06/01/25 02:10 06/01/25 03:10 DC 06/01/25 02:37 100 MLS/HR (Dilaudid inj.) 1 mg ONCE ONCE IV 06/01/25 02:35 06/01/25 02:36 DC 06/01/25 02:34 1 MG (Pyridium tablet) 200 mg ONCE ONCE PO 06/01/25 03:20 06/01/25 03:21 DC 06/01/25 03:32 200 MG (Toradol injection) 15 mg ONCE ONCE IV 06/01/25 03:20 06/01/25 03:22 DC 06/01/25 03:31 15 MG (0.9% sodium chloride (NS) 1000ml IV soln) 1,000 ml ONCE ONCE IVB 06/01/25 03:20 06/01/25 03:22 DC 06/01/25 04:19 1,000 ML (Valium inj) 10 mg ONCE ONCE IV 06/01/25 03:20 06/01/25 03:22 DC 06/01/25 03:32 10 MG (Toradol injection) 15 mg ONCE ONCE IV 06/01/25 04:50 06/01/25 04:53 DC 06/01/25 05:04 15 MG Ceftriaxone Sodium/Dextrose 50 ml @ 100 mls/hr ONCE ONCE IV 06/01/25 04:50 06/01/25 05:19 DC 06/01/25 05:04 100 MLS/HR Vital Signs 06/01/25 06/01/25 06/01/25 06/01/25 01:51 02:43 02:50 03:31 Temp 99.8 100.8 Pulse 88 75 Resp 20 16 14 B/P (MAP) 125/73 114/79 (91) Pulse Ox 98 97 O2 Flow Rate 0 0 Laboratory Tests Test 06/01/25 02:23 06/01/25 02:35 Urine Specimen Description Cln catch midstream Urine Color Brown Urine Clarity Cloudy Urine pH 6.5 Urine Specific [place] >=1.030 Urine Protein >=300 H Urine Glucose (UA) Negative Urine Ketones Trace H Urine Occult Blood Large H Urine Nitrite Negative Urine Bilirubin Small Urine Urobilinogen 2.0 H Urine Leukocyte Esterase Trace H Urine RBC 50-100 Urine WBC 0-4 Urine Squamous Epithelial Cells Few Urine Calcium Oxalate Crystals 2+ Urine Bacteria 1+ Urine Mucus Few Urine Yeast Many Urine Culture Indicated Indicated Volume Urine Centrifuged 10 ml Urine HCG, Qualitative Negative Urine Comment Urine Opiates Screen Positive Urine Methadone Screen Positive Urine Fentanyl Screen Positive H Urine Barbiturates Screen Negative Urine Phencyclidine Screen Negative Urine Amphetamines Screen Positive Urine Benzodiazepines Screen Negative Urine Cocaine Screen Negative Urine Cannabinoids Screen Positive Drug Screen Comment White Blood Count 4.8 Red Blood Count 4.91 Hemoglobin 12.6 Hematocrit 38.2 Mean Corpuscular Volume 77.9 L Mean Corpuscular Hemoglobin 25.6 L Mean Corpuscular Hemoglobin Concent 32.9 L Red Cell Distribution Width 20.8 H Platelet Count 178 Mean Platelet Volume 8.2 Neutrophils (%) (Auto) 82.9 H Lymphocytes (%) (Auto) 5.5 L Monocytes (%) (Auto) 8.9 Eosinophils (%) (Auto) 2.3 Basophils (%) (Auto) 0.4 Neutrophils # (Auto) 4.0 Lymphocytes # (Auto) 0.3 L Monocytes # (Auto) 0.4 Eosinophils # (Auto) 0.1 Basophils # (Auto) 0.0 CBC Comment Platelet Estimate Normal Red Blood Cell Morphology Perf Basophilic Stippling Anisocytosis 2+ Microcytosis Few Sodium Level 137 Potassium Level 3.6 Chloride Level 104 Carbon Dioxide Level 25.7 Anion Gap 7 L Blood Urea Nitrogen 9 Creatinine 0.73 Estimated GFR/1.73 m2 87 BUN/Creatinine Ratio 12.3 Glucose Level 97 Lactic Acid Level 0.9 Calcium Level 9.0 Total Bilirubin 0.6 Direct Bilirubin 0.1 Aspartate Amino Transf (AST/SGOT) 32 Alanine Aminotransferase (ALT/SGPT) 27 Alkaline Phosphatase 75 Total Creatine Kinase 414 H Total Protein 7.2 Albumin 3.9 Globulin 3.3 Albumin/Globulin Ratio 1.2 Procalcitonin < 0.05 Chemistry Comments Ethyl Alcohol Level < 10 Microbiology Date/Time Source Procedure Growth Status 06/01/25 03:10 Urine Clean Catch Midstream Urine Culture - Preliminary Culture received. Resulted 06/01/25 02:43 Blood Hand Left Blood Culture - Preliminary NEGATIVE (LESS THAN 24 HOURS) Resulted Re-Evaluation Re-Evaluation : Re-Evaluation: Improved Progress Patient received Dilaudid multiple L boluses. Also received Toradol Pyridium and morphine. Patient received levofloxacin and started complaining of severe arm pain. It was discontinued. Later she was given Rocephin. Because of the patient's presentation in over the top screaming yelling moaning in pain patient was given Valium 10 mg IV and seems to be doing much better at this time. Cat scan was obtained. Later the CAT scan showed adnexal mass and bladder wall is thickened consistent with cystitis. Patient's pain and fever also multiple risk factors poor social support poor behavior patient would benefit from IV antibiotics hydration and admission. I then contacted the hospitalist who kindly agreed to admit the patient for further workup and care. Ultimately patient received fluids in addition to Rocephin. Patient was admitted and given a low-dose Zyprexa to help compliance with the floor nurses. Pulse oximetry monitor interpretation shows normal oxygenation 97% room air, normal, my interpretation. Continuous monitoring and evaluation advisor interpretation shows normal sinus rhythm heart rate 80s, no ectopy, normal, my interpretation. EKG/XRAY/CT/US/VASC/MRI CT : Impression Exam: CT CT ABDOMEN PELVIS History: ABD PAIN Comparison Study: None Technique: Multidetector spiral CT of the abdomen was performed from lung bases to pubic symphysis without intravenous contrast. Coronal and sagittal multiplanar reformats were obtained from the axial data set by the technologist. Radiation Dose : 1. Abdomen/Pelvis: CTDIvol 14.1 mGy, DLP 696.8 mGy*cm. Findings: Evaluation is limited without intravenous contrast. Lung Bases: Lung bases are clear. Visualized portions of the heart and pericardium are unremarkable. Liver: The liver is normal in size. No focal lesions. Gallbladder and Biliary Tree: The gallbladder is surgically absent. No intrahepatic biliary ductal dilatation. The common bile duct measures 1.2 cm. Spleen: Unremarkable Pancreas: The pancreas shows no evidence of peripancreatic fat stranding. No pancreatic ductal dilatation. Pancreas itself is otherwise difficult to evaluate without intravenous contrast. Adrenal Glands: Unremarkable Kidneys: Punctate nonobstructive right nephrolithiasis. Left kidney is unremarkable. GI tract: Postsurgical changes in the stomach. No evidence of small bowel wall thickening or abnormal dilatation to suggest bowel obstruction. Diffuse stool is present throughout the colon The appendix is not visualized, however no inflammatory changes in the right lower quadrant to suggest acute appendicitis. Peritoneum/mesentery/retroperitoneum. No evidence of free intraperitoneal air. No ascites. No evidence of suspicious lymphadenopathy. Abdominal Wall: Unremarkable. Vasculature: Abdominal aorta and main branches are unremarkable. Urinary Bladder: Urinary bladder wall thickening. Pelvic Organs: There is a 3.6 cm left adnexal cystic mass. The uterus is unremarkable. Musculoskeletal: No aggressive focal bony lesions, acute fractures or dislocation. Intervertebral disc degeneration especially at L4-L5. IMPRESSION: 1. Urinary bladder wall thickening to be correlated clinically for cystitis. 2. 3.6 cm left adnexal cystic lesion. Pelvic ultrasound recommended. 3. Diffuse stool throughout the colon may suggest constipation. 4. Punctate nonobstructive right nephrolithiasis. 5. Cholecystectomy. Mild dilatation of the common bile duct can be seen post cholecystectomy. 6. Postsurgical changes in the stomach. Medical Decision Making Additional info obtained from: old records Urinary Diff Dx:Considerations: Include: Cholelithiasis, Choleangitis, Musculoskeletal pain, Ovarian torsion, Pancreatitis, PID, Pyelonephritis, Renal failure, Urinary Obstruction, Urolithiasis, Urinary retention, UTI, Vaginitis, Other Departure Admitted to Inpatient Unit: yes, to hospitalist Admission Level of Care: Med/Surg Impression: Primary Impression: Polysubstance dependence including opioid type drug, episodic abuse Additional Impressions: UTI (urinary tract infection) Qualified Codes: N30.01 - Acute cystitis with hematuria Abdominal pain Qualified Codes: R10.30 - Lower abdominal pain, unspecified Adnexal mass Pyrexia Qualified Codes: R50.9 - Fever, unspecified Condition: Fair Referrals: NO PRIMARY CARE PROVIDER (PCP) Education Educated: Patient Educated regarding: diagnosis, need for follow up, other Signature Scribe Signature: x Attestation: ONI Garcia MD Jun 01, 2025 04:47
[2025-06-01] MEDS: CefTRIAXone 2gm/D5W 50ml BAG 50 ML IV ONE (05:04)
--- NOTE | 2025-06-01 05:12 | RADIOLOGY REPORT ---
Exam: CT CT ABDOMEN PELVIS History: ABD PAIN Comparison Study: None Technique: Multidetector spiral CT of the abdomen was performed from lung bases to pubic symphysis wi thout intravenous contrast. Coronal and sagittal multiplanar reformats were obtained from the axial d jered set by the technologist. Radiation Dose : 1. Abdomen/Pelvis: CTDIvol 14.1 mGy, DLP 696.8 mGy*cm. Findings: Evaluation is limited without intravenous contrast. Lung Bases: Lung bases are clear. Visualized portions of the heart and pericardium are unremarkable. Liver: The liver is normal in size. No focal lesions. Gallbladder and Biliary Tree: The gallbladder is surgically absent. No intrahepatic biliary ductal di latation. The common bile duct measures 1.2 cm. Spleen: Unremarkable Pancreas: The pancreas shows no evidence of peripancreatic fat stranding. No pancreatic ductal dilat ation. Pancreas itself is otherwise difficult to evaluate without intravenous contrast. Adrenal Glands: Unremarkable Kidneys: Punctate nonobstructive right nephrolithiasis. Left kidney is unremarkable. GI tract: Postsurgical changes in the stomach. No evidence of small bowel wall thickening or abnormal dilatation to suggest bowel obstruction. Diffuse stool is present throughout the colon The appendix is not visualized, however no inflammatory changes in the right lower quadrant to suggest acute appen dicitis. Peritoneum/mesentery/retroperitoneum. No evidence of free intraperitoneal air. No ascites. No evidenc e of suspicious lymphadenopathy. Abdominal Wall: Unremarkable. Vasculature: Abdominal aorta and main branches are unremarkable. Urinary Bladder: Urinary bladder wall thickening. Pelvic Organs: There is a 3.6 cm left adnexal cystic mass. The uterus is unremarkable. Musculoskeletal: No aggressive focal bony lesions, acute fractures or dislocation. Intervertebral dis c degeneration especially at L4-L5. IMPRESSION: 1. Urinary bladder wall thickening to be correlated clinically for cystitis. 2. 3.6 cm left adnexal cystic lesion. Pelvic ultrasound recommended. 3. Diffuse stool throughout the colon may suggest constipation. 4. Punctate nonobstructive right nephrolithiasis. 5. Cholecystectomy. Mild dilatation of the common bile duct can be seen post cholecystectomy. 6. Postsurgical changes in the stomach.
[2025-06-01] MEDS ORDERED: magnesium hydroxide 30ml (MOM) UD suspension PO PRN (05:50)
[2025-06-01] MEDS ORDERED: magnesium sulf-water 4G/100mL 100 ML IV PRN (05:50)
[2025-06-01] MEDS ORDERED: magnesium Cl slow-release 64mg tablet PO PRN (05:50)
[2025-06-01] MEDS ORDERED: potassium Cl 20 mEq SR tablet PO PRN ×2 (05:50)
[2025-06-01] MEDS ORDERED: mag hydrox/Alum hydrox/simeth 30ml oral suspension PO PRN (05:50)
[2025-06-01] MEDS ORDERED: magnesium sulf-water 2g/50mL 50 ML IV PRN (05:50)
[2025-06-01] MEDS ORDERED: ondansetron/PF 4mg/2ml inj IV PRN (05:50)
[2025-06-01] MEDS ORDERED: potassium Cl 40MEQ/1/2NS 520ml 520 ML IV PRN (05:50)
--- NOTE | 2025-06-01 05:59 | HISTORY AND PHYSICAL-Residence ---
History & Physical Providers to CC Resident Creating Document: ARIANNE SPAULDING, RES ~ History of Present Illness Primary Medical Doctor: ARIA Reason for Admit\Complaint: Encephalopathy, UTI History of Present Illness This is a 44-year-old female with a history of seizures, hypothyroidism, diabetes, neuropathy, hepatitis-C, multiple drug abuse including methamphetamine use. The patient was apparently starting in the ER for pain, was given one dose of Valium 10 mg, later when I went to examine the patient the patient was drowsy and did not give me any history. The only thing she reported to me was pain all over the body. Most of the history was obtained from the ER physician. She came with a complaint of burning micturition, urgency, frequency, blood- tinged urine which started one day ago. Also has a associated low back pain and low-grade fever. Denied any recent sexual activity. Patient stated that [place] and was in so much pain that she could not arredondo. She is crying for her mother, I tried contacting her mother but contact information is not available. Allergies: Coded Allergies: codeine (Verified Allergy, Mild, HIVES, 06/01/25) morphine (Verified Allergy, Mild, HIVES, 06/01/25) cefazolin (Verified Allergy, Unknown, 06/01/25) lithium (Verified Allergy, Unknown, 06/01/25) penicillin V potassium (Verified Allergy, Unknown, 06/01/25) Home Medications Home Medications Active Symbicort 80-4.5 Mcg Inhaler (Budesonide/Formoterol Fumarate) 80 Mcg-4.5 Mcg/Actuation Hfa.aer.ad 2 Puffs INH Q12H 30 Days Albuterol Sulfate (Albuterol) 2.5 Mg/3 Ml Vial.neb 1 Vial NEB Q4HPRN PRN Cefdinir 300 Mg Capsule 1 Cap PO Q12H 3 Days Levothyroxine Sodium 125 Mcg Tablet 125 Mcg PO DAILY@07 30 Days Reported Tylenol (Acetaminophen) 325 Mg Tablet 1 Tab PO QDAY PRN PRN 30 Days Past Medical History Past Medical History Migraine, Seizures, Asthma, Hepatitis C, Thyroid (unspecified), diabetes Past Surgical History Surgical History Comment Cholecystectomy CT showed some surgical changes in the stomach Family History Family History: Patient reports no known family medical history. Past Social History Social History Comment Homeless Smokes about half pack a day has been smoking for more than 20 years Urine drug screen was positive for methamphetamine, methadone, , cannabinoids Smoking: Cigarettes, Greater than 1 pack/day Alcohol Use: Occasionally Drug Use: Methamphetamine Lives with: Other Lives In: Homeless Occupation: unemployed ROS ROS Could not be reviewed Exam Vitals: Vital Signs Date Time Temp Pulse Resp B/P (MAP) Pulse Ox O2 Delivery O2 Flow Rate FiO2 06/01/25 03:31 14 06/01/25 02:50 06/01/25 02:43 100.8 75 97 0 General: General: Poor hygiene, drowsy, arousable HEENT: Atraumatic, normocephalic Neck: Supple, trachea midline, no masses or lymphadenopathy Chest: Moderate wheezing bilaterally, diminished air movement, no rales or crackles Cardiovascular: Regular rate and rhythm, S1-S2 heard, no murmurs or gallop sounds Abdomen: Soft, nontender, nondistended, bowel sounds heard Extremities: Able to move all extremities. Central Nervous System: No focal deficits Skin: Warm and dry Diagnostic Data Last Recorded Lab Results: 06/01/25 0235 06/01/25 0235 Advance Care Planning Advanced Care plannin - 30 Minutes (The patient is currently drowsy after she got Valium, put her on full code we will be reassessed in morning.) Additional Plan Assessment This is a 44-year-old female with a history of drug abuse, seizures, diabetes post brought to the ER for pain, increased frequency of urination, burning medication. She has been admitted for UTI. Plan Encephalopathy likely drug-induced vs UTI UTox positive for amphetamine, fentanyl, methadone Patient received one dose of Valium in the ER and was drowsy Hydration NS@ 100 mL/hour Senior Operator consulted UTI, Cystitis Possible pelvic inflammatory disease. Patient is febrile, WBC, procalcitonin in the normal range Urine analysis positive for infection Urine cultures noted Blood cultures ordered Abdominal CT showed findings consistent with cystitis, nonobstructive nephrolithiasis Received 3 L boluses in the ER, started on NS@ at 100 mL/hour Started on ceftriaxone. Nystatin ordered. Multiple drug abuse UTox positive for methamphetamine and fentanyl Senior Operator consulted. Adnexal mass Abdomen CT showed 3.6 cm left adnexal cystic lesion. Ultrasound ordered History of COPD DuoNebs q.4 PRN Patient has a history of seizures was previously on Keppra 750 mg b.i.d. but not sure if she is taking this. History of hypothyroidism Continue patient's home medication levothyroxine 125 mcg once med rec is done. Code status: Full code DVT prophylaxis: Heparin GI prophylaxis: Pantoprazole Diet: Regular diet Arianne Spaulding M.D PGY2 Sushil Addendum #1 Neuro: The pt has a history of seizure disorder - Continue home AED regimen - Monitor for signs of seizures #2 CV: - Pt hemodynamically stable; monitor vitals #3 Pulm: - Promote IS use - Keep O2 sat >92% - Administer Duoneb as needed for airway support #4 GI: - Advance diet when approved by primary provider #5 Renal/Uro:S/p pelvic US - Monitor for BEKA - Replete electrolytes as needed - ceftriaxone for suspected UTI #6 ID: possible uti clinically and on CT but UA only few WBCTI; continue ceftriaxone - Monitor for signs of sepsis monitor for possible vulvovaginal candidiasis with antifungal as needed monitor for possible PID, send GC chlamydia #7 Endo: Pt with history of diabetes mellitus and hypothyroidism. - Initiate insulin sliding scale to maintain serum glucose 150-180 - Add long-acting insulin as needed - continue Synthroid for hypothyroidism #8 Heme/Onc: - Monitor for bleeding and blood clots - Keep Hgb >7 and plt >10 #9 PPx: - Chemical DVT prophylaxis #10 Substance Abuse: - polysubstance abuse I saw this patient and completed a full visual exam via audio-visual HIPAA compliant technology. Date of Service: Jun 01, 2025 Billing Provider: FAVIO CHAUDHARY MD, PRAVAHIKA, RES Jun 01, 2025 05:59 FAVIO CHAUDHARY MD Jun 01, 2025 09:24
[2025-06-01] MEDS ORDERED: ipratropium/albuterol 3ml nebule NEB PRN (06:15)
[2025-06-01] MEDS: normal saline 1000ml 1,000 ML IV SCH (06:38)
[2025-06-01] MEDS: OLANZapine 5mg rapidly disint. tablet PO ONE (06:47)
--- NOTE | 2025-06-01 07:57 | RADIOLOGY REPORT ---
INDICATION: Adnexal mass pain TECHNIQUE: Multiple real-time grayscale transabdominal sonographic images along with color and duplex Doppler of the uterus and ovaries were obtained. COMPARISON: CT CT ABDOMEN PELVIS on DOS: 06/01/25. FINDINGS: The uterus is retroverted. The uterus measures 10.9 x 3.5 x 5.9 cm. The uterus is homogenou s in echotexture. There is a hypoechoic mass in the fundus measuring 1.4 x 1.2 x 1.8 cm. The endometr ial stripe measures 0.6 cm. The right ovary measures 3.5 x 1.2 x 2.5 cm. The left ovary measures 4.9 x 3.7 x 4.3 cm. There is a cyst measuring 2.6 x 3.2 x 3.2 cm. Subsequent color and duplex Doppler interrogation of the ovaries demonstrated symmetric vascular flow to both ovaries, though this does not exclude the possibility of torsion due to the dual blood suppl y. No free fluid in the cul-de-sac. IMPRESSION: 1. 3.2 cm left ovarian cyst. 2. No ovarian torsion. 3. Uterine fibroid measuring 1.8 cm.
[2025-06-01] MEDS: docusate sod 100mg capsule PO SCH (08:00)
[2025-06-01] MEDS: K and/or MAG REPLACEMENT MC SCH (08:00)
[2025-06-01] MEDS: heparin, porcine 5000 units/ml vial SQ SCH (08:00)
--- NOTE | 2025-06-01 08:20 | RADIOLOGY REPORT ---
CHEST RADIOGRAPH Indication: Drug-induced encephalopathy, sepsis Technique: Single frontal view of the chest was obtained Comparison: DI CHEST,SINGLE VIEW on DOS: 04/06/25 FINDINGS: Lines and Tubes: None Lungs: No focal consolidation. Pleura: No effusion. No pneumothorax. Cardiomediastinal contours: Unremarkable Bones: No acute osseous abnormality. IMPRESSION: 1. No acute cardiopulmonary disease.
[2025-06-01] MEDS: NYSTATIN CREAM - 30GM TUBE TP SCH (08:29)
[2025-06-01 09:47] VITALS: PULSE 64; RESP 20; O2SAT 87
[2025-06-01 10:00] VITALS: BP 110/59; PULSE 59; RESP 20; TEMP 98.3; O2SAT 93
[2025-06-01] MEDS ORDERED: methadone PO (13:37)
[2025-06-01 18:00] VITALS: BP 117/67; PULSE 72; RESP 16; TEMP 100.4; O2SAT 95
[2025-06-01] MEDS ORDERED: HYDROcodone/acetaminophen 5mg/325mg tablet PO PRN (18:20)
[2025-06-01] MEDS: HYDROcodone/acetaminophen 10/325mg tab PO PRN (19:56)
[2025-06-01 20:00] VITALS: RESP 16; O2SAT 95
[2025-06-01 22:00] VITALS: BP 123/74; PULSE 60; RESP 14; TEMP 97.9; O2SAT 91
[2025-06-01 23:42] VITALS: PULSE 64; RESP 18; O2SAT 88
[2025-06-02 06:00] VITALS: BP 125/75; PULSE 59; RESP 18; TEMP 97.8; O2SAT 93
[2025-06-02 06:24] LABS: CREATININE 0.45 MG/DL (0.40-0.90); TOTAL CARBON DIOXIDE 20.2 MMOL/L (24-32); eCRCL 133 ML/MIN; eGFR > 90 ML/MIN
[2025-06-02] MEDS ORDERED: CefTRIAXone/D5W-Rocephin 1gm 50 ML IV SCH (08:00)
[2025-06-02 08:12] VITALS: PULSE 54; RESP 18; O2SAT 90
[2025-06-02] MEDS: CefTRIAXone 2gm/D5W 50ml BAG 50 ML IV SCH (09:10)
[2025-06-02 12:59] LABS: MEAN PLATELET VOLUME 9.2 FL (7.4-10.4); RED CELL DISTRIBUTION WIDTH 21.3 % (11.5-14.5)
[2025-06-02 13:36] LABS: BANDS% (MANUAL) 1.0 % (0-10); EOSINOPHILS % (MANUAL) 1.0 % (0-6); LYMPHOCYTES % (MANUAL) 34.0 % (21-51); MONOCYTES % (MANUAL) 23.0 % (2-12); NEUTROPHILS % (MANUAL) 41.0 % (42-75); PLATELET ESTIMATE DECREASED
[2025-06-02 13:39] LABS: ELLIPTOCYTES FEW; LARGE PLATELETS FEW
--- NOTE | 2025-06-02 14:55 | PROGRESS NOTE ---
Daily Progress Note Providers to CC ~ Antibiotic Timeout Antibiotic Ordered?: Yes Subjective No acute events overnight. Patient examined at bedside. No new complaints, not in acute distress. Patient denies chest pain, sob, palpitations, abdominal pain, n/v/d. Vss, labs notable for elevated Cl with downtrended bicarb. NS discontinued, LR started. Patient is aggressively seeking methadone. Objective Vital Signs Date Time Temp Pulse Resp B/P (MAP) Pulse Ox O2 Delivery O2 Flow Rate FiO2 06/02/25 08:12 54 18 90 Room Air* 0 21 06/02/25 06:00 97.8 125/75 (92) Result Diagram: 06/02/25 1209 06/02/25 0534 Physical Exam General: Generalized weakness, A&Ox 3, Agitated HEENT: Normocephalic, PERRLA Neck: Supple, trachea midline, no JVD Chest: Clear to auscultation bilaterally Cardiovascular: RRR, S1&S2 GI: Soft and nontender Extremities: No cyanosis/clubbing/or edema TARIFF COUNSEL: CN II-XII intact, no focal deficits Musculoskeletal: No paraspinal muscle tenderness, no muscle spasm Skin: Warm and intact Problem\Assessment\Plan Assessment & Plan Metabolic Encephalopathy likely drug-induced and UTI UTI Cystitis Polysubstance abuse -UDS positive for amphetamine, fentanyl, methadone -IVF, abx, geriatric social worker, substance use navigator consult Adnexal mass Abdomen CT showed 3.6 cm left adnexal cystic lesion. f/u outpatient History of COPD prn bronchodilator Hx seizures -continue home Keppra, follow Keppra level History of hypothyroidism -continue home levothyroxine DVT/VTE Prophylaxis: heparin Code Status: Full Code Date of Service: Jun 02, 2025 Billing Provider: SUNDEEP SOLIS Common Visit Codes: 74076-[id number] INP/OBS CARE(HIGH) SUNDEEP SOLIS Jun 02, 2025 14:54
[2025-06-02] MEDS: ringers solution, lacted 1,000 ML IV SCH (15:01)
[2025-06-02 20:00] VITALS: RESP 16; O2SAT 94
[2025-06-02 20:23] VITALS: PULSE 66; RESP 18; O2SAT 92
[2025-06-02 22:00] VITALS: BP 107/79; PULSE 76; RESP 18; TEMP 97.7; O2SAT 95
[2025-06-03 06:00] VITALS: BP 113/74; PULSE 57; RESP 16; TEMP 97; O2SAT 96
[2025-06-03] MEDS ORDERED: NALO4SPR BOTHNARES (07:36)
[2025-06-03] MEDS ORDERED: ASPI81TA52 PO (07:36)
[2025-06-03] MEDS ORDERED: CIPR-458 PO (07:36)
[2025-06-03] MEDS ORDERED: LEVE250T PO (07:36)
[2025-06-03 08:19] VITALS: PULSE 62; RESP 18; O2SAT 93
[2025-06-03 10:00] VITALS: BP 122/85; PULSE 58; RESP 13; TEMP 97.1; O2SAT 97
[2025-06-03 11:25] LABS: MEAN PLATELET VOLUME 9.8 FL (7.4-10.4); RED CELL DISTRIBUTION WIDTH 21.4 % (11.5-14.5)
--- NOTE | 2025-06-03 12:53 | DISCHARGE SUMMARY ---
Discharge Summary Providers to CC ~ Discharge Summary Admission Diagnosis: Toxic encephalopathy, cystitis, UTI, BEKA Hospital Course DATE OF ADMISSION: 06/01/25 DATE OF DISCHARGE: 06/03/25 Discharge Diagnosis\\Comment: Toxic Encephalopathy 2/2 polysubstance abuse UTI Cystitis Polysubstance abuse Prerenal BEKA 2/2 dehydration/vasomotor nephropathy- POA Adnexal mass History of COPD Hx seizures History of hypothyroidism Operations\\Procedures: None Consultants: None Complications: None Condition on DC: Stable New Medications: Aspirin (Aspirin EC) 81 Mg Tablet.dr 1 TAB PO DAILY for 30 Days, #30 TAB Ciprofloxacin HCl (Ciprofloxacin HCl) 500 Mg Tab 1 TAB PO BID for 7 Days, #14 TAB Naloxone HCl (Narcan) 4 Mg/Actuation [place] 1 SPRAYS BOTHNARES ONCE for 14 Days, #1 EA 0 Refills Levetiracetam (Levetiracetam) 250 Mg Tablet 750 MG PO BID for 90 Days, #180 TAB Discontinued Medications: [methadone] () 150 MG PO DAILY for for withdrawal/detox Discharge Summary: History of Present Illness From H&P: "This is a 44-year-old female with a history of seizures, hypothyroidism, diabetes, neuropathy, hepatitis-C, multiple drug abuse including methamphetamine use. The patient was apparently starting in the ER for pain, was given one dose of Valium 10 mg, later when I went to examine the patient the patient was drowsy and did not give me any history. The only thing she reported to me was pain all over the body. Most of the history was obtained from the ER physician. She came with a complaint of burning micturition, urgency, frequency, blood-tinged urine which started one day ago. Also has a associated low back pain and low-grade fever. Denied any recent sexual activity. Patient stated that [place] and was in so much pain that she could not arredodno. She is crying for her mother, I tried contacting her mother but contact information is not available." Hospital Course Diagnostic findings were notable for urine drug toxicology revealing positive amphetamine, fentanyl, methadone, urinalysis revealing urinary tract infection, CT abdomen/pelvis revealing cystitis and no hydronephrosis. Patient was treated with intravenous fluids, empirical antibiotics, and was kept on seizure precaution. With the start of treatment, patient's mentation came back alert and oriented x 3. Patient did not experience further complications throughout the entire hospital stay. Patient was seen and examined on the day of discharge. On day of discharge, vss and labs unremarkable. All labs, diagnostic workups, discharge plan discussed with patient in details during visit before discharge. All questions and concerns answered to the best of my professional knowledge. Patient is to be discharged to home to self and to follow up with PCP within 2 weeks. Patient was instructed to abstain from drug abuse. Physical Exam General: A&Ox 3, NAD HEENT: Normocephalic, PERRLA Neck: Supple, trachea midline, no JVD Chest: Clear to auscultation bilaterally Cardiovascular: RRR, S1&S2 GI: Soft and nontender Extremities: No cyanosis/clubbing/or edema LEAD DESIGNER: CN II-XII intact, no focal deficits Musculoskeletal: No paraspinal muscle tenderness, no muscle spasm Skin: Warm and intact *Problems/Diagnosis: (1) UTI (urinary tract infection) Status: Acute (2) Altered mental status Status: Acute (3) Opiate abuse, continuous Status: Acute (4) Polysubstance dependence including opioid type drug, episodic abuse Status: Acute Total Time Spent on D/C: > 30 Minutes Date of Service: Jun 03, 2025 Billing Provider: SUNDEEP SOLIS Common Visit Codes: 62870-WPI/OBS DISCH DAY >30min Problem Qualifiers (1) UTI (urinary tract infection): Qualified Codes: N30.01 - Acute cystitis with hematuria SUNDEEP SOLIS Jun 03, 2025 12:50
[2025-06-03 12:54] LABS: CREATININE 0.64 MG/DL (0.40-0.90); TOTAL CARBON DIOXIDE 22.7 MMOL/L (24-32); eCRCL 94 ML/MIN; eGFR > 90 ML/MIN
[2025-06-03] MEDS ORDERED: potassium Cl 20 mEq SR tablet PO STA (13:24)
== END 2025-06-03 13:45 | disposition home or self-care (01) | DRG 812 ==
LOC: ER 01:49 → ED HOLD 07:45 → EDBEDREQ 09:01 → ORTHO 4S 09:45
PROVIDERS: ADMIT Internal Medicine Pulmonary Disease; ATTEND Nurse Practitioner Family
DX: T50.991A Poisoning by other drugs, medicaments and biological substances, accidental (unintentional), initial encounter (principal); N17.0 Acute kidney failure with tubular necrosis; G92.9 Unspecified toxic encephalopathy; E03.9 Hypothyroidism, unspecified; F11.20 Opioid dependence, uncomplicated; J45.909 Unspecified asthma, uncomplicated; E11.40 Type 2 diabetes mellitus with diabetic neuropathy, unspecified; F19.10 Other psychoactive substance abuse, uncomplicated; E86.0 Dehydration; G43.909 Migraine, unspecified, not intractable, without status migrainosus; F41.9 Anxiety disorder, unspecified; N30.01 Acute cystitis with hematuria; Z88.5 Allergy status to narcotic agent; Z88.0 Allergy status to penicillin; Z88.1 Allergy status to other antibiotic agents; Z88.8 Allergy status to other drugs, medicaments and biological substances; Z59.00 Homelessness unspecified; Y92.89 Other specified places as the place of occurrence of the external cause
CPT/HCPCS: 36415; 71045; 74177; 76856; 80048; 80053; 80076; 80177; 80305; 80320; 81001; 81025; 82550; 83036; 83605; 83735; 84145; 84439; 84443; 85007; 85008; 85025; 87040; 87081; 87088; 93976; 94760; 96361; 96365; 96367; 96375; 99285; G0378; J0696; J1171; J1644; J1885; J1956; J2470; J3360; J7030; J7120; J7121; Q9967